=== PATIENT | male | born 1950 | race Caucasian/White ===

== ENCOUNTER 2016-03-02 02:57 | Emergency (ER) | payer MEDICARE, MEDICAID ==
[~2016-03-02] VITALS: Ht 177.8 cm; Wt 90.9 kg
[~2016-03-02 02:57] MED LIST: ALBU18HF INH; CARV25TA2 PO; CEPH500C PO; CLIN-78 PO; FERR325T20 PO; FINA5TAB9 PO; FLUT9.9S NS; NIFE60TA62 PO; OMEP20CA11 PO; TERA5CAP6 PO; nebulizer
[2016-03-02 03:01] VITALS: BP 130/84; PULSE 82; RESP 18; O2SAT 96
--- NOTE | 2016-03-02 03:12 | ED.REPORT ---
HPI-Abd Pain M 40 and Over Date of Service Mar 02, 2016 ED Provider: Farhat Oconnor MD Patient is a 65 year old male with a history of bipolar disorder, hypertension, pancreatitis, hepatitis C, GERD, peptic ulcer disease, stage 4 chronic kidney disease and left renal cell carcinoma s/p nephrectomy who presents to the ED complaining of abdominal pain that began yesterday. The patient states that several weeks ago he first developed a pain in his back, which migrated to his abdomen and then down to his leg. However, his pain resolved until yesterday when he developed similar symptoms. Patient also reports hearing a "pop" sometimes when he sits up. He denies a history of diverticulitis or kidney stones. Patient denies a history of small bowel obstruction but admits to previous nephrectomy and hernia repair 2x. He denies nausea, vomiting, or fever. Nursing Notes Stated Complaint: ABDOMINAL PAIN Chief Complaint: Male Abdominal Pain Nursing Notes Reviewed: Yes Allergies: Coded Allergies: Penicillins (Verified Allergy, Severe, HIVES, 03/02/16) hydromorphone (Verified Allergy, Unknown, 03/02/16) acetaminophen (Verified Adverse Reaction, Severe, n/v, 03/02/16) amlodipine (Verified Adverse Reaction, Severe, swelling legs, 03/02/16) codeine (Verified Adverse Reaction, Severe, N&V, 03/02/16) hydrocodone (Verified Adverse Reaction, Severe, severe N/V, 05/31/15) oxycodone (Verified Adverse Reaction, Severe, severe N/V, 05/31/15) Uncoded Allergies: CAT HAIR (Allergy, Unknown, UNKNOWN, 07/07/12) OPIATES (Adverse Reaction, Severe, GI UPSET, 05/31/15) Scheduled ([nebulizer]) DAILY Carvedilol (Carvedilol) 25 Mg Tablet 25 MG PO BIDWM Cephalexin (Cephalexin) 500 Mg Capsule 500 MG PO TID Clindamycin (Clindamycin) 300 Mg Capsule 300 MG PO QID Ferrous Gluconate (Ferrous Gluconate) 324 Mg Tablet 324 MG PO DAILYWM Finasteride (Finasteride) 5 Mg Tablet 5 MG PO EVERY OTHER DAY Fluticasone Propionate (Flonase Allergy Relief) 50 Mcg/Actuation [place].susp 9.9 ML NS DAILY Nifedipine ER (Nifedipine ER) 60 Mg Tab.er.24 60 MG PO DAILY Omeprazole (Omeprazole) 20 Mg Capsule. 20 MG PO DAILY Terazosin (Terazosin) 5 Mg Capsule 5 MG PO HS Scheduled PRN Albuterol Sulfate (Ventolin HFA Inhaler) 200 Puff/18 Gm Inhaler 2 PUFF INH Q4 PRN PRN For Shortness of Breath General Time Seen by MD: 03:11 Chief Complaint Abdominal pain Hx Obtained From: Patient Arrived By: Walk-in Sudden in Onset?: No Onset Occurred: Yesterday Symptom Duration: Since onset Progression since Onset: Gradually worsening Location: : Abdomen lower Quality: Painful Severity: Current: Moderate Severity: Maximum: Moderate Recent Healthcare: No recent doctor visit, No recent hospitalization Similar Sx Previous: No Past Medical History Past Medical History Notes: PCP: Dr. Glover Past Medical History 1. Esophageal stricture dilated in the past. 2. Uncontrolled hypertension. 3. History of acute pancreatitis in April 2012, thought due to thiazides and ARIELLE inhibitor. 4. Chronic active hepatitis C. 5. Recovering alcoholic x23 years. 6. Bipolar disorder. 7. History of suicide ideation back in 2010, for which he was hospitalized. 8. ADHD. 9. PTSD. 10. Asthma. 11. GERD. 12. History of peptic ulcer disease. 13. BPH. 14. Obstructive sleep apnea, on CPAP every night. 15. Chronic back pain. 16. Left renal cell carcinoma, for which he underwent a left-handed assisted laparoscopic radical nephrectomy by Dr. Maryellen Jenkins on December 22, 2012. Pathology reveals renal oncocytoma, with the tumor confined to the kidney without extension into renal pelvis or adipose tissues. Surgical margins negative for neoplasm. 17. renal failure Reports: Asthma, COPD, Cancer, Coronary artery disease, Hypertension Past Surgical History Nephrectomy - 2012 Tonsillectomy R Hydrocelectomy Right total knee arthroplasty Left total hip arthroplasty Hernia repair x2 Esophageal stricture dilatation Reports: Tonsillectomy Smoking History Former Smoker Social History Patient denies using drugs Alcohol Use: Denies alcohol use Other Social History: Poor social support, Local resident Occupation works around the farm Ambulatory Status Independent Review of Systems Constitutional: Denies: Chills, Fever GI: Reports: Abdominal pain, Denies: Nausea, Vomiting Musculoskeletal: Reports: Back pain Complete sys rev & neg: except as marked. Physical Exam Initial Vital Signs Vital Signs (First) Date Time Temp Pulse Resp B/P Pulse Ox O2 Delivery O2 Flow Rate FiO2 03/02/16 03:01 36.4 82 18 130/84 96 Room Air Initial VS: Reviewed, Vital signs normal Head / Eyes: Atraumatic, Normocephalic, PERRL ENT: Mucous membranes moist, Conjunctiva normal, No scleral icterus Neck: Supple, Full range of motion Extremities: Vascular intact, Neuro intact Skin: Warm, Dry, No cyanosis Neurologic: Alert, Oriented, Nonfocal Psychiatric: Mood/affect normal, Behavior normal, Normal thought content General/Constitutional: Awake, Alert, No acute distress, Well hydrated Respiratory / Chest: Breath sounds NL, Breath sounds = bilat, No respiratory distress, No rales, No rhonchi, No wheezing Cardiovascular: Heart rate NL, Regular rhythm, No murmurs Abdomen: Soft Tenderness/Guarding/Rebound: Positive: Tender diffuse (worse on the right mid abdomen) Bowel Sounds / Distention: Positive: Bowel sounds tympanitic, Distention moderate Back: No CVA tenderness Interpretation & Diagnostics Interpretation & Diagnostics: Urine Dip: pH of 5, trace leukocytes, positive nitries, +++ protein, +small ketones, ++ Bilirubin. All else normal. Lab Results Interpretation Result Diagram: 03/02/16 0330 03/02/16 0330 Test 03/02/16 03:30 03/02/16 04:00 White Blood Count 7.1th/mm3 (3.8-10.1) Red Blood Count 4.52mil/mm3 (4.40-5.80) Hemoglobin 12.7g/dL (13.8-17.2) Hematocrit 37.8% (41.0-50.0) Mean Corpuscular Volume 83.6fL (81-100) Mean Corpuscular Hemoglobin 28.1pg (27.0-35.0) Mean Corpuscular Hemoglobin Concent 33.6% (32.0-37.0) Red Cell Distribution Width 13.9% (12.3-15.4) Platelet Count 121bil/L (150-400) Neutrophils (%) (Auto) 55.8% (40-74) Lymphocytes (%) (Auto) 29.1% (14-46) Monocytes (%) (Auto) 12.5% (4-12) Eosinophils (%) (Auto) 2.2% (0-5) Basophils (%) (Auto) 0.4% (0-3) Sodium Level 141mEq/L (134-144) Potassium Level 4.4mEq/L (3.5-5.2) Chloride Level 103mEq/L (97-108) Carbon Dioxide Level 24mmol/L (18-29) Blood Urea Nitrogen 27mg/dL (8-27) Creatinine 2.34mg/dL (0.76-1.27) Estimat Glomerular Filtration Rate 30mL/min (>59) Glucose Level 98mg/dL (60-99) Calcium Level 9.0mg/dL (8.5-10.1) Magnesium Level 2.0mg/dL (1.6-2.6) Total Bilirubin 0.3mg/dL (0.0-1.2) Aspartate Amino Transf (AST/SGOT) 29U/L (0-50) Alanine Aminotransferase (ALT/SGPT) 33U/L (0-44) Alkaline Phosphatase 80U/L (25-160) Total Protein 7.6g/dL (6.4-8.4) Albumin 3.9g/dL (3.4-5.0) Lipase 68U/L (13-60) Hold Bhatia Top Tube Received (Received) Urine Color Yellow (YELLOW) Urine Appearance Hazy (CLEAR,HAZY) Urine pH 6.0 (5.0-8.0) Urine Specific [place] 1.023 (1.003-1.035) Urine Protein 100mg/dL (NEG,TRACE) Urine Glucose (UA) Negativemg/dL (NEGATIVE) Urine Ketones Negativemg/dL (NEGATIVE) Urine Occult Blood Negative (NEGATIVE) Urine Nitrite Negative (NEGATIVE) Urine Bilirubin Negative (NEGATIVE) Urine Urobilinogen Normalmg/dL (NORMAL) Urine Leukocyte Esterase Large (NEGATIVE) Urine RBC 0-2/hpf (0-2) Urine WBC >50/hpf (0-5) Urine Epithelial Cells Moderate/hpf (NONE-MOD) Urine Crystals None seen (NONE SEEN) Urine Bacteria Few/hpf (NONE-FEW) Urine Hyaline Casts None/lpf (NONE) Urine Granular Casts None seen (NONE SEEN) Urine Waxy Casts None seen (NONE SEEN) Urine Red Blood Cell Casts None seen (NONE SEEN) Urine White Blood Cell Casts None seen (NONE SEEN) Urine Mucus None seen (None Seen) Urine Trichomonas None seen (NONE SEEN) Urine Yeast None (NONE SEEN) Urinalysis Comment None Urine Culture Reflexed Indicated Hold Urine Received (Received) Lab values outside NL range: no clinical significance. ECG Interpretation ECG Interpretation: Sinus Rhythm, Rate 74 Abnormal T, consider ischemia lateral leads Time: 03:41 Interpreted by: ED physician Normal ECG Interpretation: No change from prior ECGs (Unchanged from 2014) CT Abd / Pelvis Interpretation CONCLUSION: No acute findings. Normal appendix. Other findings as noted above. Radiologist: Mitch Plascencia MD 03/02/2016 - 5:03:10 AM [facility] Study type: Abdominal CT no contrast Interpretation / Wet Read by: Interpret - Radiologist Re-Eval/Medical Decision Med Decision/Clinical Course Diffuse abdominal pain with no obvious source found on initial emergency room evaluation and CT scan. His initial dip urinalysis was trace leukocytes, culture pending. He will be discharged home to follow up with his primary doctor. Source of Hx: Old records Time of Eval: 06:05 )( Re-Eval Abdomen: Non-tender Patient Status: Condition improved Re-Evaluation/Progress Note: Rechecked the patient. Abdominal pain is improved. CT scan was negative. Awaiting UA results, but other labs do not show any acute process. Patient understands and agrees with the plan to be discharged home. Discharge instructions and follow-up discussed. All questions were addressed. Return to the ED warnings given. Counseled Regarding: Diagnosis, Lab results, Need for follow-up, When/why to return to ED Discharge & Departure Primary Impression: Abdominal pain Abdominal location: generalized Qualified Code: R10.84 - Generalized abdominal pain Disposition: Home Vital Signs - All Vital Signs Date Time Temp Pulse Resp B/P Pulse Ox O2 Delivery O2 Flow Rate FiO2 03/02/16 06:22 36.1 67 20 135/80 95 Room Air 03/02/16 03:01 36.4 82 18 130/84 96 Room Air )( All Prior VS Reviewed: Yes Condition: Stable Patient Instructions: Acute Abdominal Pain (ED) Additional Instructions: No evidence of serious illnesses found on laboratory testing. Your pain is likely due to viral infection. Follow-up in the emergency room over the weekend if you worsen or follow up with your primary doctor on Thursday routinely. Call me at [phone] between the hours of 9 PM and 6 AM for the next couple of nights if you have any questions or concerns. Referrals: Lucrecia Glover PA-C (PCP) Scribe Attestation Portions of this note were transcribed by Kelsey Hodges. I, Dr. Oconnor, personally performed the history, physical exam and medical decision-making; I reviewed and confirmed the accuracy of the information in the transcribed note. Signed by: Nancy Boateng, 03/02/2016 0607 copies to: Lucrecia Glover PA-C, Howard L MD Mar 02, 2016 03:12 Kelsey Hodges Mar 02, 2016 03:21
[2016-03-02] MEDS ORDERED: 0.9% Sodium Chloride 1,000 ML IV ONE (03:18)
[2016-03-02] MEDS ORDERED: Pantoprazole 4 mg/mL 10 mL Inj IVPUSH ONE (03:20)
[2016-03-02] MEDS ORDERED: fentaNYL-PF 50 mCg/mL 2 mL Inj IVPUSH ONE (03:35)
[2016-03-02] MEDS ORDERED: Ondansetron 2 mg/mL 2 mL Inj IVPUSH PRN (03:35)
[2016-03-02 03:42] LABS: BASOPHILS % (AUTO) 0.4 % (0-3); EOSINOPHILS % (AUTO) 2.2 % (0-5); MONOCYTES % (AUTO) 12.5 % (4-12); Mean Corpuscular Hemoglobin 28.1 pg (27.0-35.0); Mean Corpuscular Volume 83.6 fL (81-100); NEUTROPHILS % (AUTO) 55.8 % (40-74); Platelet Count 121 bil/L (150-400)
[2016-03-02 06:22] VITALS: BP 135/80; PULSE 67; RESP 20; O2SAT 95
[2016-03-02 06:39] LABS: APPEARANCE,URINE HAZY (CLEAR,HAZY); COLOR,URINE YELLOW (YELLOW); OCCULT BLOOD,URINE NEGATIVE (NEGATIVE); UROBILINOGEN,URINE NORMAL (NORMAL)
--- NOTE | 2016-03-02 07:40 | DRSVH ---
PROCEDURE: CT KUB (PNL-7475) INDICATIONS: abdominal pain TECHNIQUE: Noncontrast 5 mm thick sections acquired from the diaphragms to the symphysis. 5 mm thick coronal an d sagittal reformats were then performed. For radiation dose reduction, the following was used: aut omated exposure control, adjustment of mA and/or kV according to patient size. COMPARISON: None. FINDINGS: Image quality: Excellent. Lung bases: Lung bases are clear. Heart size is normal. There is a small hiatal hernia. Urinary system: Selective and non-visualized and is presumably surgically absent. The right kidney is normal size. No hydronephrosis or nephrolithiasis. No hydroureter or ureterolithiasis. The bladder i s partially fluid-filled. No bladder calculi. Small calcifications are present within the prostate gl and which is normal size. Other solid organs: Liver and spleen are normal in size. Gallbladder is unremarkable. Pancreas is normal in contours. No adrenal nodules. Peritoneum and bowel: Unenhanced bowel loops demonstrate normal wall thickness and caliber. The appe ndix is thin walled and gas filled. No free fluid or air. Nodes and vessels: No retroperitoneal or mesenteric adenopathy by size criteria. Aorta and inferior vena cava are normal in caliber. There are scattered atheromatous calcifications throughout the aor ta and iliac arteries bilaterally. Abdominal wall: There is diastasis of the rectus musculature. Pelvis: No free pelvic fluid. No inguinal hernias or adenopathy. Bones: No suspicious bony lesions. No vertebral body compression fractures. Left hip arthroplasty is intact. IMPRESSION: 1. No hydronephrosis, nephrolithiasis, hydroureter, or ureterolithiasis. 2. No acute intra-abdominal findings. Normal appendix. These findings are concordant with the overnight interpretation. Dictated by: Tara Aceves M.D. on 03/02/2016 at 7:36 Approved by: Tara Aceves M.D. on 03/02/2016 at 7:39
== END 2016-03-02 06:25 | disposition home or self-care (01) ==
LOC: SED 03:24
DX: R10.84 Generalized abdominal pain (principal); I12.9 Hypertensive chronic kidney disease with stage 1 through stage 4 chronic kidney disease, or unspecified chronic kidney disease; K21.9 Gastro-esophageal reflux disease without esophagitis; N18.4 Chronic kidney disease, stage 4 (severe); J45.909 Unspecified asthma, uncomplicated; J44.9 Chronic obstructive pulmonary disease, unspecified; I25.10 Atherosclerotic heart disease of native coronary artery without angina pectoris; Z85.9 Personal history of malignant neoplasm, unspecified; Z87.891 Personal history of nicotine dependence; Z88.0 Allergy status to penicillin; Z88.5 Allergy status to narcotic agent; Z88.6 Allergy status to analgesic agent; Z88.8 Allergy status to other drugs, medicaments and biological substances; Z91.048 Other nonmedicinal substance allergy status
CPT/HCPCS: 36415; 74176; 80053; 81000; 83690; 83735; 85025; 87077; 87086; 87088; 87186; 93005; 96361; 96374; 96375; 99285; J2405; J7030

== ENCOUNTER 2016-09-30 17:24 | Emergency (ER) | payer MEDICARE, MEDICAID ==
[~2016-09-30] VITALS: Ht 177.8 cm; Wt 95.5 kg
[2016-09-30 17:30] VITALS: BP 161/90; PULSE 74; RESP 15; O2SAT 99
[2016-09-30 19:00] LABS: BASOPHILS % (AUTO) 0.3 % (0-3); EOSINOPHILS % (AUTO) 2.1 % (0-5); MONOCYTES % (AUTO) 14.8 % (4-12); Mean Corpuscular Hemoglobin 27.9 pg (27.0-35.0); Mean Corpuscular Volume 85.8 fL (81-100); NEUTROPHILS % (AUTO) 52.9 % (40-74); Platelet Count 121 bil/L (150-400)
[2016-09-30 19:17] LABS: Magnesium 2.6 mg/dL (1.6-2.6)
[2016-10-01] MEDS ORDERED: ONDA4TAB9 PO (14:44)
[2016-10-05] MEDS ORDERED: LOSA25TA21 PO (07:36)
[2016-10-05] MEDS ORDERED: RANI-426 PO (07:36)
[2016-10-06] MEDS ORDERED: NIFE30TA92 PO (09:54)
[2016-10-06] MEDS ORDERED: METR500T PO (09:54)
== END 2016-09-30 21:17 | disposition left against medical advice (07) ==
LOC: SED 17:24
DX: Z53.21 Procedure and treatment not carried out due to patient leaving prior to being seen by health care provider (principal)

== ENCOUNTER 2016-10-01 13:11 | Emergency (ER) | payer MEDICARE, MEDICAID ==
[~2016-10-01] VITALS: Ht 175.3 cm; Wt 90.9 kg
[2016-10-01 13:22] VITALS: BP 137/86; PULSE 63; RESP 18; O2SAT 100
[2016-10-01] MEDS ORDERED: 0.9% Sodium Chloride 1,000 ML IV ONE ×2 (13:35→14:45)
[2016-10-01] MEDS ORDERED: Ondansetron 2 mg/mL 2 mL Inj IVPUSH PRN (13:35)
[2016-10-01 13:49] LABS: BASOPHILS % (AUTO) 0.3 % (0-3); EOSINOPHILS % (AUTO) 2.3 % (0-5); MONOCYTES % (AUTO) 11.8 % (4-12); Mean Corpuscular Hemoglobin 28.5 pg (27.0-35.0); Mean Corpuscular Volume 84.3 fL (81-100); NEUTROPHILS % (AUTO) 60.7 % (40-74); Platelet Count 123 bil/L (150-400)
--- NOTE | 2016-10-01 14:01 | ED.REPORT ---
HPI-NVD Date of Service Oct 01, 2016 ED Provider: Juno Le MD Pt is a 66 y/o male w/ a hx of prior alcohol abuse, pancreatitis, chronic Hep C , CKD, left renal carcinoma s/p left nephrectomy in 2012, presenting to the ED c /o diarrhea and occasional vomiting onset 5 days ago. He did eat at a picnic 1 week ago. He has not had any diarrhea today and feels like he is improving. The patient checked into the ED yesterday for N/V/D and had labs drawn. He left without being seen by a provider and labs were remarkable for creatinine which was found to be significantly elevated at 3.31 with a BUN of 37. He was called and told to come back to the ED for further evaluation. He c/o associated anorexia, mild aching abdominal pain. Pt denies bloody stools, hematemesis, fever. Nursing Notes Stated Complaint: INTESTINAL ISSUE Chief Complaint: Male Abdominal Pain Nursing Notes Reviewed: Yes Allergies: Coded Allergies: Penicillins (Verified Allergy, Severe, HIVES, 10/01/16) hydromorphone (Verified Allergy, Unknown, 10/01/16) acetaminophen (Verified Adverse Reaction, Severe, n/v, 10/01/16) amlodipine (Verified Adverse Reaction, Severe, swelling legs, 10/01/16) codeine (Verified Adverse Reaction, Severe, N&V, 10/01/16) hydrocodone (Verified Adverse Reaction, Severe, severe N/V, 10/01/16) oxycodone (Verified Adverse Reaction, Severe, severe N/V, 10/01/16) Uncoded Allergies: CAT HAIR (Allergy, Unknown, UNKNOWN, 07/07/12) OPIATES (Adverse Reaction, Severe, GI UPSET, 05/31/15) Scheduled ([nebulizer]) DAILY Carvedilol (Carvedilol) 25 Mg Tablet 25 MG PO BIDWM Cephalexin (Cephalexin) 500 Mg Capsule 500 MG PO TID Clindamycin (Clindamycin) 300 Mg Capsule 300 MG PO QID Ferrous Gluconate (Ferrous Gluconate) 324 Mg Tablet 324 MG PO DAILYWM Finasteride (Finasteride) 5 Mg Tablet 5 MG PO EVERY OTHER DAY Fluticasone Propionate (Flonase Allergy Relief) 50 Mcg/Actuation [place].susp 9.9 ML NS DAILY Nifedipine ER (Nifedipine ER) 60 Mg Tab.er.24 60 MG PO DAILY Omeprazole (Omeprazole) 20 Mg Capsule.dr 20 MG PO DAILY Terazosin (Terazosin) 5 Mg Capsule 5 MG PO HS Scheduled PRN Albuterol Sulfate (Ventolin HFA Inhaler) 200 Puff/18 Gm Inhaler 2 PUFF INH Q4 PRN PRN For Shortness of Breath Ondansetron ODT (Zofran ODT) 4 Mg Tablet 4 MG PO Q4H PRN PRN For Nausea General Time Seen by MD: 13:33 Chief Complaint Nausea, Vomiting, Diarrhea Hx Obtained From: Patient Arrived By: Walk-in Onset Occurred: 5 days ago Symptom Duration: Since onset Location: : Diffuse Quality: Aching Severity: Current: Mild Severity: Maximum: Mild Past Medical History Past Medical History Notes: PCP: Lucrecia Glover Past Medical History 1. Esophageal stricture dilated in the past. 2. Hypertension. 3. History of acute pancreatitis in April 2012, thought due to thiazides and ARIELLE inhibitor. 4. Chronic active hepatitis C. 5. Recovering alcoholic x23 years. 6. Bipolar disorder. 7. History of suicidal ideation back in 2010, for which he was hospitalized. 8. ADHD. 9. PTSD. 10. Asthma. 11. GERD. 12. History of peptic ulcer disease. 13. BPH. 14. Obstructive sleep apnea, on CPAP every night. 15. Chronic back pain. 16. Left renal cell carcinoma, for which he underwent a left-handed assisted laparoscopic radical nephrectomy by Dr. Maryellen Jenkins on December 22, 2012. Pathology reveals renal oncocytoma, with the tumor confined to the kidney without extension into renal pelvis or adipose tissues. Surgical margins negative for neoplasm. 17. CKD 18. CAD 19. COPD 20. Hypothyroid Past Surgical History Left nephrectomy - 2012 Tonsillectomy R Hydrocelectomy Right total knee arthroplasty Left total hip arthroplasty Hernia repair x2 Esophageal stricture dilatation Smoking History Former Smoker Social History Alcohol Use: Denies alcohol use Drug Use: Denies drug use Other Social History: Poor social support, Local resident Occupation works around the farm Ambulatory Status Independent Review of Systems Constitutional: Denies: Chills, Fever GI: Reports: Abdominal pain, Anorexia, Diarrhea, Nausea, Vomiting, Denies: Bloody/tarry stool, Hematemesis Complete sys rev & neg: except as marked. Physical Exam Initial Vital Signs Vital Signs (First) Date Time Temp Pulse Resp B/P Pulse Ox O2 Delivery O2 Flow Rate FiO2 10/01/16 13:22 36.3 63 18 137/86 100 Room Air Initial VS: Reviewed, Vital signs normal Head / Eyes: Atraumatic, Normocephalic ENT: Mucous membranes moist, Conjunctiva normal Neck: Supple, Full range of motion Respiratory: Breath sounds normal, Clear to auscultation, No respiratory distress Cardiovascular: Regular rate & rhythm, Heart sounds normal, Intact distal pulses Extremities: Vascular intact, Neuro intact, No swelling Skin: Warm, Dry, No cyanosis Neurologic: Alert, Oriented, Nonfocal Psychiatric: Mood/affect normal, Behavior normal, Normal thought content General/Constitutional: Awake, Alert, No acute distress, Cooperative, Not toxic appearing Abdomen: Atraumatic, Soft, Non-tender, No guarding, No rebound, No distention, No palpable mass Old periumbilical scar Back: Full range of motion, Painless range of motion, No CVA tenderness Interpretation & Diagnostics Lab Results Interpretation Result Diagram: 10/01/16 1340 10/01/16 1340 Test 10/01/16 13:40 10/01/16 15:31 White Blood Count 7.0th/mm3 (3.8-10.1) Red Blood Count 4.60mil/mm3 (4.40-5.80) Hemoglobin 13.1g/dL (13.8-17.2) Hematocrit 38.8% (41.0-50.0) Mean Corpuscular Volume 84.3fL (81-100) Mean Corpuscular Hemoglobin 28.5pg (27.0-35.0) Mean Corpuscular Hemoglobin Concent 33.8% (32.0-37.0) Red Cell Distribution Width 13.4% (12.3-15.4) Platelet Count 123bil/L (150-400) Neutrophils (%) (Auto) 60.7% (40-74) Lymphocytes (%) (Auto) 24.8% (14-46) Monocytes (%) (Auto) 11.8% (4-12) Eosinophils (%) (Auto) 2.3% (0-5) Basophils (%) (Auto) 0.3% (0-3) Sodium Level 133mEq/L (134-144) Potassium Level 4.7mEq/L (3.5-5.2) Chloride Level 99mEq/L (97-108) Carbon Dioxide Level 20mmol/L (18-29) Blood Urea Nitrogen 32mg/dL (8-27) Creatinine 2.89mg/dL (0.76-1.27) Estimat Glomerular Filtration Rate 23mL/min (>59) Glucose Level 102mg/dL (60-99) Calcium Level 8.7mg/dL (8.5-10.1) Magnesium Level 2.5mg/dL (1.6-2.6) Total Bilirubin 0.5mg/dL (0.0-1.2) Aspartate Amino Transf (AST/SGOT) 30U/L (0-50) Alanine Aminotransferase (ALT/SGPT) 35U/L (0-44) Alkaline Phosphatase 105U/L (25-160) Total Protein 8.2g/dL (6.4-8.4) Albumin 4.3g/dL (3.4-5.0) Lipase 157U/L (13-60) Hold Bhatia Top Tube Received (Received) Hold Urine Received (Received) Re-Eval/Medical Decision Med Decision/Clinical Course 66-year-old male chronic kidney disease presenting with nausea vomiting diarrhea 5 days. He was seen last night and had labs drawn but left prior to being seen due to long wait times. He was called to come back in because of his elevated creatinine. It is improved today after oral hydration last night. His nausea vomiting diarrhea has resolved. Patient felt much better after 2 L normal saline. He requested to go home. His creatinine is elevated though not significantly beyond his baseline. He will be discharged home with plan for oral rehydration and Zofran as needed. Return precautions given. Source of Hx: Old records Re-Evaluation/Progress : Time of Eval: 14:44 Re-Evaluation/Progress Note: Pt rechecked. Informed pt of plan for discharge. Pt understands and agrees with plan for discharge. F/U instructions and RTER warnings given. All questions addressed. Counseled Regarding: Diagnosis, Lab results, Need for follow-up, When/why to return to ED Discharge & Departure Impression: Primary Impression: Viral gastroenteritis Additional Impression: DAI (acute kidney injury) Disposition: Home Discharge Condition All VS Reviewed: Yes Condition: Stable Patient Instructions: Gastroenteritis (ED) Additional Instructions: I suspect your symptoms are caused by a viral gastroenteritis. Labs were reassuring. Your kidney function has returned back to its baseline compared to yesterday. Take Zofran as needed for nausea. Follow a BRAT diet (bananas, rice, applesauce, toast) and stay well hydrated with Gatorade and water. Follow-up with your primary care doctor in 1-3 days for a recheck. Return to the emergency department if you experience fever, worsening abdominal pain, bloody diarrhea or vomit, uncontrolled vomiting or diarrhea, or for other concerning symptoms. Referrals: Lucrecia Glover PA-C (PCP) Scribe Attestation Portions of this note were transcribed by Shamir Florentino. I, Dr. Le personally performed the history, physical exam and medical decision-making; I reviewed and confirmed the accuracy of the information in the transcribed note. copies to: Lucrecia Glover PA-C, Ben M MD Oct 01, 2016 14:01 SHAMIR FLORENTINO Oct 01, 2016 14:08
[2016-10-01 14:10] LABS: Magnesium 2.5 mg/dL (1.6-2.6)
[2016-10-01] MEDS ORDERED: LidocaineVisc 2%:Antacid 1:1 10 mL Syringe PO ONE (14:25)
[2016-10-01] MEDS ORDERED: ONDA4TAB9 PO (14:44)
[2016-10-01 16:23] VITALS: BP 120/75; PULSE 66; O2SAT 99
[2016-10-05] MEDS ORDERED: LOSA25TA21 PO (07:36)
[2016-10-05] MEDS ORDERED: RANI-426 PO (07:36)
[2016-10-06] MEDS ORDERED: METR500T PO (09:54)
[2016-10-06] MEDS ORDERED: NIFE30TA92 PO (09:54)
== END 2016-10-01 16:23 | disposition home or self-care (01) ==
LOC: SED 13:11
DX: A08.4 Viral intestinal infection, unspecified (principal); N17.9 Acute kidney failure, unspecified; I13.10 Hypertensive heart and chronic kidney disease without heart failure, with stage 1 through stage 4 chronic kidney disease, or unspecified chronic kidney disease; I25.10 Atherosclerotic heart disease of native coronary artery without angina pectoris; N18.9 Chronic kidney disease, unspecified; J44.9 Chronic obstructive pulmonary disease, unspecified; K21.9 Gastro-esophageal reflux disease without esophagitis; F31.9 Bipolar disorder, unspecified; F90.9 Attention-deficit hyperactivity disorder, unspecified type; G47.33 Obstructive sleep apnea (adult) (pediatric); E03.9 Hypothyroidism, unspecified; Z98.890 Other specified postprocedural states; Z90.89 Acquired absence of other organs; Z87.891 Personal history of nicotine dependence; Z88.0 Allergy status to penicillin; Z88.5 Allergy status to narcotic agent; Z88.8 Allergy status to other drugs, medicaments and biological substances
CPT/HCPCS: 36415; 80053; 83690; 83735; 85025; 96361; 96374; 99284; J7030

== ENCOUNTER 2016-10-03 17:54 | Emergency (ER) | payer MEDICARE, MEDICAID ==
[~2016-10-03] VITALS: Ht 177.8 cm; Wt 90.9 kg
[~2016-10-03 17:54] MED LIST changes: +ONDA4TAB9 PO
[2016-10-03 18:01] VITALS: BP 154/82; PULSE 68; RESP 16; O2SAT 97
[2016-10-03 18:27] LABS: BASOPHILS % (AUTO) 0.4 % (0-3); EOSINOPHILS % (AUTO) 1.5 % (0-5); MONOCYTES % (AUTO) 10.9 % (4-12); Mean Corpuscular Hemoglobin 28.6 pg (27.0-35.0); Mean Corpuscular Volume 84.3 fL (81-100); NEUTROPHILS % (AUTO) 65.4 % (40-74); Platelet Count 122 bil/L (150-400)
[2016-10-03 18:45] LABS: Magnesium 2.4 mg/dL (1.6-2.6)
[2016-10-03 19:43] VITALS: BP 169/102; PULSE 68; RESP 14; O2SAT 99
[2016-10-03] MEDS ORDERED: 0.9% Sodium Chloride 1,000 ML IV ONE (20:00)
[2016-10-03] MEDS ORDERED: Ondansetron 2 mg/mL 2 mL Inj IVPUSH PRN (20:00)
--- NOTE | 2016-10-03 20:27 | DRSVH ---
PROCEDURE: CT ABDOMEN AND PELVIS WITHOUT CONTRAST (PNL-[id number]) INDICATIONS: abd pain TECHNIQUE: Noncontrast 5 mm thick sections acquired from the diaphragms to the symphysis. 5 mm coronal and sagi ttal reformats were then performed. For radiation dose reduction, the following was used: automated exposure control, adjustment of mA and/or kV according to patient size. COMPARISON: [facility], CT, ABD/PELVIS W/O CON (PNL), 08/08/2014, 13:38. FINDINGS: Image quality: Good ABDOMEN: Lung bases: Lung bases are clear. Heart size is normal. There is in the posterior low right chest deep to the latissimus dorsi muscle a lipoma that measures 8.4 x 3.4 cm in axial plane and is greater than the visualized portion of 6.3 cm in craniocaudal dimension. There is a small lipoma 2 cm x 1.3 cm over several centimeters in length in the posterior lateral right lower chest. Solid organs: Liver and spleen are normal in size. Gallbladder is within normal limits.. Pancreas is normal in contours. No adrenal nodules. The right kidney is considered normal. The left kidney jernigan s been removed. Peritoneum and bowel: Unenhanced bowel loops demonstrate normal wall thickness and caliber. No free fluid or air. There is a normal appendix. Nodes and vessels: No retroperitoneal or mesenteric adenopathy by size criteria. Aorta and inferior vena cava are normal in caliber. Miscellaneous: No ventral hernias. PELVIS: Genitourinary: Bladder wall thickness is thought to be diffusely increased secondary to moderately e nlarged prostate. Miscellaneous: No inguinal hernias or adenopathy. Bones: No suspicious bony lesions. There is a mild rotoscoliosis convex to the left in the lumbar sp ine. There is a total left hip arthroplasty. No vertebral body compression fractures. IMPRESSION: 1. Acute change is not seen in the CT of the abdomen and pelvis without contrast. Cause of pain is no t identified. 2. Previous removal of the left kidney. No evidence for malignancy is seen in the abdomen and pelvis. 3. Moderately enlarged prostate with diffusely thickened bladder wall. 4. Lipoma is in the lower thorax tissues bilaterally right greater than left Dictated by: Randy Werner M.D. on 10/03/2016 at 20:17 Approved by: Randy Werner M.D. on 10/03/2016 at 20:26
--- NOTE | 2016-10-03 20:30 | ED.REPORT ---
HPI-Abd Pain M 40 and Over Date of Service Oct 03, 2016 ED Provider: Juno Le MD Pt is a 66 year old male with a history of alcohol abuse, pancreatitis, chronic Hep C, CKD, and left renal carcinoma s/p left nephrectomy in 2012 who presents to the ED complaining of abdominal pain onset 6 days ago. He c/o associated fatigue, nausea, vomiting, and diarrhea. He denies hematemesis, SOB, cough, nasal congestion, hematochezia, fever, and any other symptoms. The pt last vomited prior to arrival, and he states that he hasn't been able to "keep anything down since 9 days ago." Denies recent antibiotics. Pt reports that he has not had any recent travel or camping trips. Per pt, his girlfriend is also sick, but he reports that she does not have similar symptoms. Pt presented to the ED on 10/01/16 with his symptoms and he was discharged with a diagnosis of viral gastroenteritis and DAI. Nursing Notes Stated Complaint: GASTROENTERITIS Chief Complaint: Male Abdominal Pain Nursing Notes Reviewed: Yes Allergies: Coded Allergies: Penicillins (Verified Allergy, Severe, HIVES, 10/01/16) hydromorphone (Verified Allergy, Unknown, 10/01/16) acetaminophen (Verified Adverse Reaction, Severe, n/v, 10/01/16) amlodipine (Verified Adverse Reaction, Severe, swelling legs, 10/01/16) codeine (Verified Adverse Reaction, Severe, N&V, 10/01/16) hydrocodone (Verified Adverse Reaction, Severe, severe N/V, 10/01/16) oxycodone (Verified Adverse Reaction, Severe, severe N/V, 10/01/16) Uncoded Allergies: CAT HAIR (Allergy, Unknown, UNKNOWN, 07/07/12) OPIATES (Adverse Reaction, Severe, GI UPSET, 05/31/15) Scheduled ([nebulizer]) DAILY Carvedilol (Carvedilol) 25 Mg Tablet 25 MG PO BIDWM Cephalexin (Cephalexin) 500 Mg Capsule 500 MG PO TID Clindamycin (Clindamycin) 300 Mg Capsule 300 MG PO QID Ferrous Gluconate (Ferrous Gluconate) 324 Mg Tablet 324 MG PO DAILYWM Finasteride (Finasteride) 5 Mg Tablet 5 MG PO EVERY OTHER DAY Fluticasone Propionate (Flonase Allergy Relief) 50 Mcg/Actuation [place].susp 9.9 ML NS DAILY Nifedipine ER (Nifedipine ER) 60 Mg Tab.er.24 60 MG PO DAILY Omeprazole (Omeprazole) 20 Mg Capsule.dr 20 MG PO DAILY Terazosin (Terazosin) 5 Mg Capsule 5 MG PO HS Scheduled PRN Albuterol Sulfate (Ventolin HFA Inhaler) 200 Puff/18 Gm Inhaler 2 PUFF INH Q4 PRN PRN For Shortness of Breath Ondansetron ODT (Zofran ODT) 4 Mg Tablet 4 MG PO Q4H PRN PRN For Nausea General Time Seen by MD: 19:55 Chief Complaint Abdominal pain Hx Obtained From: Patient Arrived By: Walk-in Sudden in Onset?: No Onset Occurred: 6 days ago Symptom Duration: Since onset Location: : Diffuse Quality: Painful Severity: Current: Moderate Severity: Maximum: Moderate Recent Healthcare: Recent doctor visit Similar Sx Previous: No Past Medical History Past Medical History Notes: PCP: Lucrecia Glover Past Medical History 1. Esophageal stricture dilated in the past. 2. Hypertension. 3. History of acute pancreatitis in April 2012, thought due to thiazides and ARIELLE inhibitor. 4. Chronic active hepatitis C. 5. Recovering alcoholic x23 years. 6. Bipolar disorder. 7. History of suicidal ideation back in 2010, for which he was hospitalized. 8. ADHD. 9. PTSD. 10. Asthma. 11. GERD. 12. History of peptic ulcer disease. 13. BPH. 14. Obstructive sleep apnea, on CPAP every night. 15. Chronic back pain. 16. Left renal cell carcinoma, for which he underwent a left-handed assisted laparoscopic radical nephrectomy by Dr. Maryellen Jenkins on December 22, 2012. Pathology reveals renal oncocytoma, with the tumor confined to the kidney without extension into renal pelvis or adipose tissues. Surgical margins negative for neoplasm. 17. CKD 18. CAD 19. COPD 20. Hypothyroid Past Surgical History Left nephrectomy - 2012 Tonsillectomy R Hydrocelectomy Right total knee arthroplasty Left total hip arthroplasty Hernia repair x2 Esophageal stricture dilatation Smoking History Former Smoker Social History Alcohol Use: Denies alcohol use Drug Use: Denies drug use Other Social History: Poor social support, Local resident Occupation works around the farm Ambulatory Status Independent Review of Systems Constitutional: Reports: Fatigue, Denies: Fever Respiratory: Denies: Non-productive cough, Shortness of breath GI: Reports: Abdominal pain, Diarrhea, Nausea, Vomiting, Denies: Hematemesis, Hematochezia Complete sys rev & neg: except as marked. Ears / Nose / Throat: Denies: Nasal congestion Physical Exam Initial Vital Signs Vital Signs (First) Date Time Temp Pulse Resp B/P Pulse Ox O2 Delivery O2 Flow Rate FiO2 10/03/16 18:01 37.5 68 16 154/82 97 10/03/16 19:43 Room Air Initial VS: Reviewed Head / Eyes: Atraumatic, Normocephalic Neck: Supple, Full range of motion Extremities: Vascular intact, Neuro intact Skin: Warm, Dry, No cyanosis Neurologic: Alert, Oriented Psychiatric: Mood/affect normal, Behavior normal General/Constitutional: Awake, Alert Respiratory / Chest: Atraumatic, Breath sounds NL, Breath sounds = bilat Cardiovascular: Heart rate NL, Regular rhythm, Heart sounds NL Abdomen: No guarding, No rebound Tenderness/Guarding/Rebound: Positive: Tender diffuse No ascites or fluid wave Back: Full range of motion CVAT Interpretation & Diagnostics Lab Results Interpretation Result Diagram: 10/03/16 1815 10/03/16 1815 Test 10/03/16 18:15 10/03/16 20:25 White Blood Count 8.2th/mm3 (3.8-10.1) Red Blood Count 4.58mil/mm3 (4.40-5.80) Hemoglobin 13.1g/dL (13.8-17.2) Hematocrit 38.6% (41.0-50.0) Mean Corpuscular Volume 84.3fL (81-100) Mean Corpuscular Hemoglobin 28.6pg (27.0-35.0) Mean Corpuscular Hemoglobin Concent 33.9% (32.0-37.0) Red Cell Distribution Width 13.4% (12.3-15.4) Platelet Count 122bil/L (150-400) Neutrophils (%) (Auto) 65.4% (40-74) Lymphocytes (%) (Auto) 21.7% (14-46) Monocytes (%) (Auto) 10.9% (4-12) Eosinophils (%) (Auto) 1.5% (0-5) Basophils (%) (Auto) 0.4% (0-3) Sodium Level 136mEq/L (134-144) Potassium Level 4.3mEq/L (3.5-5.2) Chloride Level 103mEq/L (97-108) Carbon Dioxide Level 20mmol/L (18-29) Blood Urea Nitrogen 24mg/dL (8-27) Creatinine 2.91mg/dL (0.76-1.27) Estimat Glomerular Filtration Rate 23mL/min (>59) Glucose Level 110mg/dL (60-99) Lactic Acid Level 0.7mmol/L (0.4-2.0) Calcium Level 9.1mg/dL (8.5-10.1) Magnesium Level 2.4mg/dL (1.6-2.6) Total Bilirubin 0.5mg/dL (0.0-1.2) Aspartate Amino Transf (AST/SGOT) 32U/L (0-50) Alanine Aminotransferase (ALT/SGPT) 31U/L (0-44) Alkaline Phosphatase 104U/L (25-160) Total Protein 8.0g/dL (6.4-8.4) Albumin 4.1g/dL (3.4-5.0) Lipase 210U/L (13-60) Hold Bhatia Top Tube Received (Received) Urine Color Yellow (YELLOW) Urine Appearance Clear (CLEAR,HAZY) Urine pH 7.0 (5.0-8.0) Urine Specific [place] 1.020 (1.003-1.035) Urine Protein 300mg/dL (NEG,TRACE) Urine Glucose (UA) Negativemg/dL (NEGATIVE) Urine Ketones Negativemg/dL (NEGATIVE) Urine Occult Blood Trace (NEGATIVE) Urine Nitrite Negative (NEGATIVE) Urine Bilirubin Negative (NEGATIVE) Urine Urobilinogen Normalmg/dL (NORMAL) Urine Leukocyte Esterase Negative (NEGATIVE) Urine RBC 0-2/hpf (0-2) Urine WBC 0-5/hpf (0-5) Urine Epithelial Cells Few/hpf (NONE-MOD) Urine Crystals None seen (NONE SEEN) Urine Bacteria Few/hpf (NONE-FEW) Urine Hyaline Casts None/lpf (NONE) Urine Granular Casts None seen (NONE SEEN) Urine Waxy Casts None seen (NONE SEEN) Urine Red Blood Cell Casts None seen (NONE SEEN) Urine White Blood Cell Casts None seen (NONE SEEN) Urine Mucus None seen (None Seen) Urine Trichomonas None seen (NONE SEEN) Urine Yeast None (NONE SEEN) Urinalysis Comment None Urine Culture Reflexed Not indicated CT Abd / Pelvis Interpretation IMPRESSION: 1. Acute change is not seen in the CT of the abdomen and pelvis without contrast. Cause of pain is not identified. 2. Previous removal of the left kidney. No evidence for malignancy is seen in the abdomen and pelvis. 3. Moderately enlarged prostate with diffusely thickened bladder wall. 4. Lipoma is in the lower thorax tissues bilaterally right greater than left Dictated by: Randy Werner M.D. on 10/03/2016 at 20:17 Study type: Abdominal CT no contrast Interpretation / Wet Read by: Interpret - Radiologist Re-Eval/Medical Decision Med Decision/Clinical Course 66-year-old male history of solitary kidney, chronic kidney disease, hepatitis C presenting with nausea vomiting for 9 days. He had none while he was here. Also with diarrhea. His labs are unremarkable other than elevated kidney function which is only slightly up from his baseline and is unchanged from [address] abdomen and pelvis no acute pathology. Stools cultures were sent. Given the duration of symptoms and concerned he may need antibiotics though he feels much better and will go home and we can call him in the morning with results should he need any antibiotics. He denies any recent antibiotics or risk factors for C. difficile. Patient felt much better and is discharged home with antiemetics and pain medications with plans to follow up on his stool studies in the morning. Return precautions given. Source of Hx: Old records Time of Eval: 21:14 Re-Evaluation/Progress Note: Pt rechecked. Informed pt of plan for discharge. Pt understands and agrees with plan for discharge. F/U instructions and RTER warnings given. All questions addressed. Counseled Regarding: Diagnosis, Lab results, Need for follow-up, When/why to return to ED Discharge & Departure Primary Impression: Gastroenteritis Additional Impression: Generalized abdominal pain Disposition: Home Vital Signs - All Vital Signs Date Time Temp Pulse Resp B/P Pulse Ox O2 Delivery O2 Flow Rate FiO2 10/03/16 19:43 37.1 68 14 169/102 99 Room Air 10/03/16 18:01 37.5 68 16 154/82 97 )( All Prior VS Reviewed: Yes Condition: Stable Patient Instructions: Gastroenteritis (ED) Additional Instructions: You appear to have gastroenteritis. Your CAT scan is reassuring. Your labs are reassuring. Your kidney function is the same as it was 2 days ago. We will call you tomorrow in the morning if your stools show signs of infection and require antibiotics. Return to the Emergency Department for any worsening abdominal pain, weakness, fever, nausea, vomiting, or concerning symptoms. Referrals: Lucrecia Glover PA-C (PCP) [place] Attestation Portions of this note were transcribed by Adrianna Mojica. I, Dr. Le personally performed the history, physical exam and medical decision-making; I reviewed and confirmed the accuracy of the information in the transcribed note. Signed by: Nancy Vazquez, 10/03/16. copies to: Lucrecia Glover PA-C, Ben M MD Oct 03, 2016 20:30 Adrianna [place] Oct 03, 2016 20:33
[2016-10-03 20:46] LABS: APPEARANCE,URINE CLEAR (CLEAR,HAZY); COLOR,URINE YELLOW (YELLOW); OCCULT BLOOD,URINE TRACE (NEGATIVE); UROBILINOGEN,URINE NORMAL (NORMAL)
[2016-10-03] MEDS ORDERED: _Ondansetron ODT 4 mg Tablet PO PRN (21:20)
[2016-10-03] MEDS ORDERED: _HYDROcodone/APAP 5-325 mg Tablet PO PRN (21:20)
[2016-10-05] MEDS ORDERED: LOSA25TA21 PO (07:36)
[2016-10-05] MEDS ORDERED: RANI-426 PO (07:36)
[2016-10-06] MEDS ORDERED: NIFE30TA92 PO (09:54)
[2016-10-06] MEDS ORDERED: METR500T PO (09:54)
== END 2016-10-03 22:17 | disposition home or self-care (01) ==
LOC: SED 17:54
DX: K52.9 Noninfective gastroenteritis and colitis, unspecified (principal); I13.10 Hypertensive heart and chronic kidney disease without heart failure, with stage 1 through stage 4 chronic kidney disease, or unspecified chronic kidney disease; N18.9 Chronic kidney disease, unspecified; K21.9 Gastro-esophageal reflux disease without esophagitis; I25.10 Atherosclerotic heart disease of native coronary artery without angina pectoris; F43.10 Post-traumatic stress disorder, unspecified; Z87.891 Personal history of nicotine dependence; Z88.0 Allergy status to penicillin; Z88.5 Allergy status to narcotic agent; Z88.8 Allergy status to other drugs, medicaments and biological substances
CPT/HCPCS: 36415; 74176; 80053; 81000; 83605; 83690; 83735; 85025; 87040; 87507; 96361; 96374; 96375; 99285; J2270; J2405; J7030

== ENCOUNTER 2016-10-09 04:54 | Inpatient (IN) | payer MEDICARE, MEDICAID ==
[~2016-10-09] VITALS: Ht 172.7 cm; Wt 97.4 kg
[2016-10-09] VITALS (8 sets, daily range): BP systolic 140–185; BP diastolic 91–112; PULSE 60–80; RESP 15–18; O2SAT 96–98
[~2016-10-09 04:54] MED LIST changes: -CEPH500C PO; -CLIN-78 PO; +METR500T PO; +NIFE30TA92 PO; -NIFE60TA62 PO; -OMEP20CA11 PO; +RANI-426 PO
[2016-10-09] MEDS ORDERED: 0.9% Sodium Chloride 1,000 ML IV ONE (05:02)
[2016-10-09] MEDS ORDERED: Ondansetron 2 mg/mL 2 mL Inj IVPUSH ONE ×2 (05:05→07:30)
[2016-10-09 05:28] LABS: BASOPHILS % (AUTO) 0.4 % (0-3); EOSINOPHILS % (AUTO) 2.5 % (0-5); MONOCYTES % (AUTO) 11.3 % (4-12); Mean Corpuscular Hemoglobin 28.7 pg (27.0-35.0); Mean Corpuscular Volume 82.8 fL (81-100); NEUTROPHILS % (AUTO) 58.4 % (40-74); Platelet Count 132 bil/L (150-400)
[2016-10-09 05:40] LABS: INR 1.04 ratio
[2016-10-09 05:48] LABS: Magnesium 2.1 mg/dL (1.6-2.6)
--- NOTE | 2016-10-09 06:40 | ED.REPORT ---
HPI-General Illness Date of Service Oct 09, 2016 ED Provider: Yenny Burns MD The pt is a 66 y/o male w/ a hx of hepatitis C, HTN, GERD, pancreatitis, and multiple other chronic conditions presenting to the ED complaining of diarrhea onset 13 days ago. He has had 10 bowel movements and vomited 6 times since last night and is experiencing abdominal pain. The pt reports feeling as bad as he did the day he was hospitalized. Denies fever, chills, generalized myalgia, or blood in his stool. The pt was just discharged from the hospital for C. Dificile Colitis 3 days ago. He reports feeling better the next day but then getting worse after that. He also reports being unable to eat other foods other than soft, simple foods due to nausea and being unable to keep it down. Nursing Notes Stated Complaint: DIARRHEA, VOMITING Chief Complaint: Diarrhea Nursing Notes Reviewed: Yes Allergies: Coded Allergies: Penicillins (Verified Allergy, Severe, HIVES, 10/09/16) hydromorphone (Verified Allergy, Unknown, 10/09/16) acetaminophen (Verified Adverse Reaction, Severe, n/v, 10/09/16) amlodipine (Verified Adverse Reaction, Severe, swelling legs, 10/09/16) codeine (Verified Adverse Reaction, Severe, N&V, 10/09/16) hydrocodone (Verified Adverse Reaction, Severe, severe N/V, 10/09/16) oxycodone (Verified Adverse Reaction, Severe, severe N/V, 10/09/16) Uncoded Allergies: CAT HAIR (Allergy, Unknown, UNKNOWN, 07/07/12) OPIATES (Adverse Reaction, Severe, GI UPSET, 05/31/15) Scheduled Carvedilol (Carvedilol) 25 Mg Tablet 25 MG PO BIDWM Finasteride (Finasteride) 5 Mg Tablet 5 MG PO DAILY Fluticasone Propionate (Flonase Allergy Relief) 50 Mcg/Actuation [place].susp 2 SPRAYS NS DAILY Levothyroxine (Levothyroxine) 50 Mcg Tablet 50 MCG PO DAILY Losartan Potassium (Losartan Potassium) 25 Mg Tablet 25 MG PO DAILY Metronidazole (Flagyl) 500 Mg Tablet 500 MG PO Q8 Nifedipine ER (Adalat CC) 60 Mg Tablet 60 MG PO DAILY Terazosin (Terazosin) 2 Mg Capsule 2 NG PO MORNING Terazosin (Terazosin) 2 Mg Capsule 4 MG PO HS Scheduled PRN Albuterol Sulfate (Ventolin HFA Inhaler) 200 Puff/18 Gm Inhaler 2 PUFF INH Q4 PRN PRN For Shortness of Breath Ondansetron ODT (Zofran ODT) 4 Mg Tablet 4 MG PO Q4H PRN PRN For Nausea General Time Seen by MD: 05:02 Chief Complaint Diarrhea Hx Obtained From: Patient Arrived By: Walk-in Sudden in Onset?: Yes Onset Occurred: More than a week ago... (2 weeks) Symptom Duration: Waxes and wanes Recent Healthcare: Recent doctor visit, Recent hospitalization Similar Sx Previous: Yes Past Medical History Past Medical History Notes: PCP: Lucrecia Glover Past Medical History 1. Esophageal stricture dilated in the past. 2. Hypertension. 3. History of acute pancreatitis in April 2012, thought due to thiazides and ARIELLE inhibitor. 4. Chronic active hepatitis C. 5. Recovering alcoholic x23 years. 6. Bipolar disorder. 7. History of suicidal ideation back in 2010, for which he was hospitalized. 8. ADHD. 9. PTSD. 10. Asthma. 11. GERD. 12. History of peptic ulcer disease. 13. BPH. 14. Obstructive sleep apnea, on CPAP every night. 15. Chronic back pain. 16. Left renal cell carcinoma, for which he underwent a left-handed assisted laparoscopic radical nephrectomy by Dr. Maryellen Jenkins on December 22, 2012. Pathology reveals renal oncocytoma, with the tumor confined to the kidney without extension into renal pelvis or adipose tissues. Surgical margins negative for neoplasm. 17. CKD 18. CAD 19. COPD 20. Hypothyroid Past Surgical History Left nephrectomy - 2013 Tonsillectomy R Hydrocelectomy Right total knee arthroplasty Left total hip arthroplasty Hernia repair x2 Esophageal stricture dilatation Smoking History Former Smoker Social History lives alone Alcohol Use: In recovery Drug Use: Denies drug use Other Social History: Poor social support, Local resident Occupation works around the farm Ambulatory Status Independent Review of Systems Decreased appetite; Denies generalized myalgia; Full Review of Systems Constitutional: Denies: Chills, Fever GI: Reports: Abdominal pain, Diarrhea, Nausea, Vomiting, Denies: Bloody/tarry stool Complete sys rev & neg: except as marked. Physical Exam Vital Signs Vital Signs Date Time Temp Pulse Resp B/P Pulse Ox O2 Delivery O2 Flow Rate FiO2 10/09/16 05:00 37.1 73 16 140/91 98 Room Air Initial VS: Reviewed General/Constitutional: Well-developed, Well-nourished Head / Eyes: Atraumatic, Normocephalic, PERRL ENT: Mucous membranes moist, Conjunctiva normal, No scleral icterus Neck: Supple, Non-tender, Full range of motion Cardiovascular: Regular rate & rhythm, Heart sounds normal, Intact distal pulses Skin: Warm, Dry, No cyanosis Neurologic: Alert, Oriented, Nonfocal Psychiatric: Mood/affect normal, Behavior normal, Normal thought content Respiratory / Chest: Atraumatic, Breath sounds = bilat Minimal diffuse wheezes Abdomen: Soft, BS normoactive Slight tenderness in RUQ Interpretation & Diagnostics Lab Results Interpretation Result Diagram: 10/09/16 0515 10/09/16 0515 Test 10/09/16 05:15 10/09/16 07:15 White Blood Count 7.2th/mm3 (3.8-10.1) Red Blood Count 4.36mil/mm3 (4.40-5.80) Hemoglobin 12.5g/dL (13.8-17.2) Hematocrit 36.1% (41.0-50.0) Mean Corpuscular Volume 82.8fL (81-100) Mean Corpuscular Hemoglobin 28.7pg (27.0-35.0) Mean Corpuscular Hemoglobin Concent 34.6% (32.0-37.0) Red Cell Distribution Width 13.3% (12.3-15.4) Platelet Count 132bil/L (150-400) Neutrophils (%) (Auto) 58.4% (40-74) Lymphocytes (%) (Auto) 27.3% (14-46) Monocytes (%) (Auto) 11.3% (4-12) Eosinophils (%) (Auto) 2.5% (0-5) Basophils (%) (Auto) 0.4% (0-3) Prothrombin Time 11.1sec (8.1-12.5) Prothromb Time International Ratio 1.04ratio Sodium Level 138mEq/L (134-144) Potassium Level 3.7mEq/L (3.5-5.2) Chloride Level 101mEq/L (97-108) Carbon Dioxide Level 22mmol/L (18-29) Blood Urea Nitrogen 21mg/dL (8-27) Creatinine 3.07mg/dL (0.76-1.27) Estimat Glomerular Filtration Rate 22mL/min (>59) Glucose Level 117mg/dL (60-99) Lactic Acid Level 0.8mmol/L (0.4-2.0) Calcium Level 9.1mg/dL (8.5-10.1) Magnesium Level 2.1mg/dL (1.6-2.6) Total Bilirubin 0.4mg/dL (0.0-1.2) Aspartate Amino Transf (AST/SGOT) 38U/L (0-50) Alanine Aminotransferase (ALT/SGPT) 32U/L (0-44) Alkaline Phosphatase 93U/L (25-160) Total Protein 7.4g/dL (6.4-8.4) Albumin 3.8g/dL (3.4-5.0) Lipase 204U/L (13-60) Urine Color Yellow (YELLOW) Urine Appearance Hazy (CLEAR,HAZY) Urine pH 7.0 (5.0-8.0) Urine Specific [place] 1.015 (1.003-1.035) Urine Protein 100mg/dL (NEG,TRACE) Urine Glucose (UA) Negativemg/dL (NEGATIVE) Urine Ketones Negativemg/dL (NEGATIVE) Urine Occult Blood Trace (NEGATIVE) Urine Nitrite Negative (NEGATIVE) Urine Bilirubin Negative (NEGATIVE) Urine Urobilinogen Normalmg/dL (NORMAL) Urine Leukocyte Esterase Trace (NEGATIVE) Urine RBC 0-2/hpf (0-2) Urine WBC 6-10/hpf (0-5) Urine Epithelial Cells Occasional/hpf (NONE-MOD) Urine Crystals None seen (NONE SEEN) Urine Bacteria None/hpf (NONE-FEW) Urine Hyaline Casts None/lpf (NONE) Urine Granular Casts None seen (NONE SEEN) Urine Waxy Casts None seen (NONE SEEN) Urine Red Blood Cell Casts None seen (NONE SEEN) Urine White Blood Cell Casts None seen (NONE SEEN) Urine Mucus None seen (None Seen) Urine Trichomonas None seen (NONE SEEN) Urine Yeast None (NONE SEEN) Urinalysis Comment None Urine Culture Reflexed Indicated Re-Eval/Medical Decision Med Decision/Clinical Course 66-year-old gentleman presents with worsening diarrhea 3 days after discharge. Diagnosed with C. difficile currently on by mouth metronidazole and is taking it as prescribed. Symptoms are worse than they were with his previous admission with more frequent diarrhea, renal function is again worse and his lipase is again elevated. We will readmit. IV fluids switched to oral vancomycin for the C. difficile and follow lipase as well as renal function with IV hydration and clear liquids only for diet. Time of Eval: 08:14 Re-Evaluation/Progress Note: Pt rechecked. Informed pt of need for admission. Pt understands and agrees with plan for admission. All questions addressed. Consultation #1: Call Returned at: 08:14 Note: Called pharmacy to confirm that oral vancomycin is not absorbed and no renal dosing changes are needed Consultation #2: Referral / Consult Name: Praveen Pitts MD Consulted With: Hospitalist Call Returned at: 08:49 Rac Specialist: Will see patient, Agrees with eval, Agrees with plan, Accepts admit Counseled Regarding: Diagnosis, Lab results, Need for admission Discharge & Departure Primary Impression: Recurrent Clostridium difficile diarrhea Additional Impressions: Pancreatitis Chronicity: chronic Pancreatitis type: unspecified pancreatitis type Qualified Code: K86.1 - Other chronic pancreatitis Acute renal disease Disposition: ADMITTED TO HOSPITAL Discharge Condition All VS Reviewed: Yes Condition: Stable Referrals: Lucrecia Glover PA-C (PCP) Scribe Attestation Portions of this note were transcribed by Tahir Marrufo. I, Dr. Burns personally performed the history, physical exam and medical decision-making; I reviewed and confirmed the accuracy of the information in the transcribed note. copies to: Lucrecia Glover PA-C, Shawna L MD Oct 09, 2016 06:40 Tahir Marrufo Oct 09, 2016 08:17
[2016-10-09] MEDS ORDERED: Vancomycin 250 mg Oral Capsule PO ONE (08:05)
[2016-10-09] MEDS: 0.9% Sodium Chloride 1,000 ML IV SCH ×4 (08:20→22:55)
[2016-10-09 08:31] LABS: APPEARANCE,URINE HAZY (CLEAR,HAZY); COLOR,URINE YELLOW (YELLOW)
[2016-10-09 08:32] LABS: OCCULT BLOOD,URINE TRACE (NEGATIVE); UROBILINOGEN,URINE NORMAL (NORMAL)
[2016-10-09] MEDS ORDERED: NIFE60TA77 PO (08:53)
[2016-10-09] MEDS ORDERED: TERA2CAP4 PO ×2 (08:53)
[2016-10-09] MEDS ORDERED: LEVO50TA6 PO (08:53)
[2016-10-09] MEDS ORDERED: LOSA25TA21 PO (08:56)
[2016-10-09] MEDS: Heparin 5,000 Unit/mL Inj SUBQ SCH ×2 (11:25→19:25)
--- NOTE | 2016-10-09 11:32 | PCM.HPMED ---
Subjective Date of Service Oct 09, 2016 Primary Provider: Admitting Physician: Praveen Pitts MD Primary Care Physician: Lucrecia Glover PA-C Attending Physician: Praveen Pitts MD Chief Complaint: Loose stool, abdominal pain , weakness History of Present Illness: History of present illness and past histories obtained from old charts, ED physician, and the patient (patient does not remember all details of current illness, PMH history, admissions, medications, procedures or test patient underwent in the past that might be relevant to current case). This is a 59 yo male with past medical history of Hepatitis C , pancreatitis, probably alcohol abuse, C-dif infection, recent admission to the hospital for C. difficile colitis, discharged on October 06 in good condition on Flagyl PO. Patient presented today with worsening diarrhea, fatigue, abdominal pain, worsened renal function, elevated lipase. Review of Systems: REVIEW OF SYSTEMS: GENERAL: + malaise, no fevers., SEE HPI HEENT: Negative for frequent or significant headaches All other reviewed and negative other than HPI. Allergies Coded Allergies: Penicillins (Verified Allergy, Severe, HIVES, 10/09/16) hydromorphone (Verified Allergy, Unknown, 10/09/16) acetaminophen (Verified Adverse Reaction, Severe, n/v, 10/09/16) amlodipine (Verified Adverse Reaction, Severe, swelling legs, 10/09/16) codeine (Verified Adverse Reaction, Severe, N&V, 10/09/16) hydrocodone (Verified Adverse Reaction, Severe, severe N/V, 10/09/16) oxycodone (Verified Adverse Reaction, Severe, severe N/V, 10/09/16) Uncoded Allergies: CAT HAIR (Allergy, Unknown, UNKNOWN, 07/07/12) OPIATES (Adverse Reaction, Severe, GI UPSET, 05/31/15) Home Medications Home medications reviewed PMH Social History Hx Alcohol Use: Yes (-SOBER 27 YRS) Hx Substance Use: No Hx Tobacco Use: No Smoking Status: Former Smoker Exam Vital Signs Vital Sign - Last Date Time Temp Pulse Resp B/P Pulse Ox O2 Delivery O2 Flow Rate FiO2 10/09/16 08:26 36.4 79 15 146/93 98 Room Air Intake and Output 10/08/16 10/08/16 10/09/16 Cumulative From/Thru 15:00 23:00 07:00 10/09/16 05:00 - 10/09/16 05:28 Intake Total 1000 ml 1000 ml Balance 1000 ml 1000 ml Intake IV Total 1000 ml 1000 ml Exam PHYSICAL EXAM: GENERAL: Alert, not in distress, cooperative HEAD: atraumatic, normocephalic, no bruises. EYES: GERRY, EOMI, anicteric, able to fully open and close eyelids SKIN: Skin color normal, turgor normal. No visible rashes or lesions. EAR, NOSE, MOUTH, THROAT: Lips, oral mucosa, tongue gums, oropharynx are moist , pink, no lesions. Ears normal appearance, no lesions. NECK: no jugulovenous distention, no carotid bruits, carotid pulse normal contour, No carotid bruit, no enlarged lymph nodes appreciated; supple ROM normal. RESPIRATORY: Lungs clear to auscultation. Good diaphragmatic excursion. Normal percussion sound. CARDIAC: normal S1 and S2; no rubs, murmurs, or gallops; regular rate and rhythm ABDOMEN: Abdomen soft, tender. BS normal. No masses or organomegaly. MUSCULOSKELETAL: ROM full, muscles are not tender EXTREMITIES: no pitting edema in LE, no new deformities or skin discoloration. NEURO: Alert, oriented X 3, Sensation grossly intact., Cranial nerves II-XII intact, Grossly normal motor function. PULSES: 2+ radial, 2+ carotid Lab and Diagnostics Result Diagram: 10/09/1651410/09/16514 X-Rays, CTs and MRIs RecentMRCP IMPRESSION: Overall, unremarkable MRI appearance of the pancreas. Nonetheless recommend correlation with clinical findings and pancreatic enzymes. Recent CT abdomen IMPRESSION: 1. Acute change is not seen in the CT of the abdomen and pelvis without contrast. Cause of pain is not identified. 2. Previous removal of the left kidney. No evidence for malignancy is seen in the abdomen and pelvis. 3. Moderately enlarged prostate with diffusely thickened bladder wall. 4. Lipoma is in the lower thorax tissues bilaterally right greater than left ecent US IMPRESSION: 1. Diffusely increased hepatic echotexture. This finding is most likely secondary to hepatic fatty infiltration although other hepatocellular disease may have a similar appearance. Recommend clinical correlation. 2. Right kidney is normal in size but demonstrates echogenic cortex suggesting medical renal disease. Recommend clinical correlation. No hydronephrosis. 3. Left nephrectomy. 4. Pancreas not well-seen. Assessment & Plan This is a 59 yo male with past medical history of Hepatitis C , pancreatitis, probably alcohol abuse, C-dif infection, recent admission to the hospital for C. difficile colitis, discharged on October 06 in good condition on Flagyl by mouth. Patient presented today with worsening diarrhea, fatigue, worsened renal function, elevated lipase. C. 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 Hepatitis C. - He has elevated lipase at baseline, unclear etiology - Patient does have a gallbladder, no other elevation in LFTs noted that he does have right upper quadrant/epigastric tenderness. - CT abdominopelvic had had showed no signs of cholelithiasis or choledocholithiasis in the past - Recent MRCP no concern for cholelithiasis and choledocholithiasis Plan - Continue with careful hydration, monitor Hyperparathyroidemia, -- Likely due to renal disease -- Vit D 25 OH levels are ordered Hypertension - Elevated -c/w home meds BPH - stable - Continue home medications GERD, chronic stable --Continue home medications DVT PROPHYLAXIS: heparin Code status: patient would like to be full code Disposition: discharge in 2-3 days after patient improves. Plan of care discussed with ED physician; Labs, radiology tests, recent ECG reviewed. Plan of care, medication side effects, home medication, diagnostic procedures and available alternatives were discussed and reviewed with patient. All questions answered. Patient verbalized understanding, approved and agreed to plan of care. Praveen Pitts MD Oct 09, 2016 09:35
[2016-10-09] MEDS: NIFEdipine 30 mg ER24 Tablet PO SCH (12:22)
[2016-10-09] MEDS: Vancomycin 250 mg Oral Capsule PO SCH ×2 (12:22→20:54)
--- NOTE | 2016-10-09 13:44 | NUR ---
ADMISSION Pt arrived to [facility] unit, 1015, from ED at 0949. A&Ox3, DAVIS, VSS - HTN/on RA, IV SL - patent, Pain present but tolerable, No tele, Contact Enteric precautions in place, Belongings brought over with pt, Medications sent down to pharmacy for holding, CPOx obtained for SHEILA, Tolerating PO, BRP - up independently. Tired, wanting to sleep. Admission completed. Call light in reach. Care continues.
[2016-10-09] MEDS: HYDROmorphone 0.5 mg/0.5 mL iSecure Syringe IVPUSH PRN (19:13)
[2016-10-09] MEDS: Ondansetron 2 mg/mL 2 mL Inj IVPUSH PRN (19:16)
[2016-10-09] MEDS: Alum-Mag Hydrox-Simeth 30 mL Suspension PO PRN (20:54)
[2016-10-10] VITALS (7 sets, daily range): BP systolic 143–166; BP diastolic 85–98; PULSE 64–80; RESP 16–20; O2SAT 95–100
[2016-10-10] MEDS: Vancomycin 250 mg Oral Capsule PO SCH ×4 (03:18→21:06)
[2016-10-10] MEDS: HYDROmorphone 0.5 mg/0.5 mL iSecure Syringe IVPUSH PRN ×4 (03:18→19:42)
[2016-10-10] MEDS: 0.9% Sodium Chloride 1,000 ML IV SCH ×5 (03:18→23:38)
[2016-10-10] MEDS: Heparin 5,000 Unit/mL Inj SUBQ SCH ×3 (03:25→19:25)
--- NOTE | 2016-10-10 03:29 | NUR ---
Pain/bowels Pt reports pain 7-8/10 throughout the night, PRN dilaudid given with + effects. Pt up to BR independently, using urinal at bedside. Continues with loose bowels. Tolerating PO ABO and full liquid diet. Call light in reach, Care continues.
[2016-10-10] MEDS: Alum-Mag Hydrox-Simeth 30 mL Suspension PO PRN ×2 (05:02→16:12)
[2016-10-10] MEDS: NIFEdipine 30 mg ER24 Tablet PO SCH (08:48)
[2016-10-10] MEDS: Ondansetron 2 mg/mL 2 mL Inj IVPUSH PRN ×2 (13:17→19:42)
[2016-10-10] MEDS: Fluticasone 0.05% 15 Spray/2 Gm 16 Gm Nasal Spray NASAL SCH (13:22)
--- NOTE | 2016-10-10 13:53 | PCM.PNMED ---
Subjective Date of Service Oct 10, 2016 Subjective Patient is in the bed, feeling better. His bowel movements are improving. Exam Vital Signs Vital Sign - Last Date Time Temp Pulse Resp B/P Pulse Ox O2 Delivery O2 Flow Rate FiO2 10/10/16 08:48 77 16 96 Room Air 10/10/16 08:38 36.4 154/85 Intake and Output 10/09/16 10/09/16 10/10/16 Cumulative From/Thru 15:00 23:00 07:00 10/09/16 05:00 - 10/10/16 06:17 Intake Total 400 ml 2178 ml 1117 ml 4695 ml Output Total 1500 ml 2450 ml 3950 ml Balance 400 ml 678 ml -1333 ml 745 ml Intake Oral 100 ml 757 ml 1117 ml 1974 ml IV Total 300 ml 1421 ml 2721 ml Output Urine Total 1500 ml 2450 ml 3950 ml # Voids 3 3 # Bowel Movements 2 1 3 Exam GENERAL: Alert, not in distress, in bed HEAD: atraumatic, normocephalic, no bruises. EYES: EOMI, anicteric, able to fully open and close eyelids SKIN: Skin color normal, turgor normal. No visible rashes or lesions. EAR, NOSE, MOUTH, THROAT: Lips, oral mucosa, tongue are moist, pink, no lesions. NECK: no jugulovenous distention; supple ROM normal. RESPIRATORY: Lungs clear to auscultation. Good diaphragmatic excursion. CARDIAC: normal S1 and S2; no rubs, murmurs, or gallops; regular rate and rhythm ABDOMEN: Abdomen soft, mildly tender. BS normal. No masses or organomegaly. MUSCULOSKELETAL: ROM full, muscles are not tender EXTREMITIES: no pitting edema in LE, no new deformities or skin discoloration. NEURO: Alert, oriented X3, Cranial nerves II-XII intact, Grossly normal motor function. PULSES: 2+ radial, 2+ carotid REVIEW OF SYSTEMS: GENERAL: no malaise, no fevers., SEE HPI HEENT: Negative for frequent or significant headaches All other reviewed and negative other than HPI. Lab and Diagnostics Result Diagram: 10/09/1651410/09/16514 X-Rays, CTs and MRIs RecentMRCP IMPRESSION: Overall, unremarkable MRI appearance of the pancreas. Nonetheless recommend correlation with clinical findings and pancreatic enzymes. Recent CT abdomen IMPRESSION: 1. Acute change is not seen in the CT of the abdomen and pelvis without contrast. Cause of pain is not identified. 2. Previous removal of the left kidney. No evidence for malignancy is seen in the abdomen and pelvis. 3. Moderately enlarged prostate with diffusely thickened bladder wall. 4. Lipoma is in the lower thorax tissues bilaterally right greater than left ecent US IMPRESSION: 1. Diffusely increased hepatic echotexture. This finding is most likely secondary to hepatic fatty infiltration although other hepatocellular disease may have a similar appearance. Recommend clinical correlation. 2. Right kidney is normal in size but demonstrates echogenic cortex suggesting medical renal disease. Recommend clinical correlation. No hydronephrosis. 3. Left nephrectomy. 4. Pancreas not well-seen. Assessment & Plan This is a 59 yo male with past medical history of Hepatitis C , pancreatitis, probably alcohol abuse, C-dif infection, recent admission to the hospital for C. difficile colitis, discharged on October 06 in good condition on Flagyl by mouth. Patient presented today with worsening diarrhea, fatigue, worsened renal function, elevated lipase. C. 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 Hepatitis C. - He has elevated lipase at baseline, unclear etiology - Patient does have a gallbladder, no other elevation in LFTs noted that he does have right upper quadrant/epigastric tenderness. - CT abdominopelvic had had showed no signs of cholelithiasis or choledocholithiasis in the past - Recent MRCP no concern for cholelithiasis and choledocholithiasis Plan - Continue with careful hydration, monitor Hyperparathyroidemia, -- Likely due to renal disease -- Vit D 25 OH levels are ordered Hypertension - Elevated -c/w home meds BPH - stable - Continue home medications GERD, chronic stable --Continue home medications DVT PROPHYLAXIS: heparin Code status: patient would like to be full code Disposition: discharge in 2-3 days after patient improves. Plan of care discussed with ED physician; Labs, radiology tests, recent ECG reviewed. Plan of care, diagnostic procedures and available alternatives were discussed and reviewed with patient. All questions answered. Patient verbalized understanding, approved and agreed to plan of care. [employer]: Intermittant Pneumatic CD Praveen Pitts MD Oct 10, 2016 13:53
[2016-10-10] MEDS: Albuterol 2.5 mg/3 mL Inhalation Solution NEB PRN ×2 (14:18→22:18)
[2016-10-10 15:43] LABS: Mean Corpuscular Hemoglobin 28.5 pg (27.0-35.0); Mean Corpuscular Volume 85.2 fL (81-100)
--- NOTE | 2016-10-10 17:45 | NUR ---
Pain/Nausea/Diet Patient reports intermittent pain /. Requesting zofran prior to pain meds to control nausea. Decreased appetite and PO intake. Attempting to advance diet, currently full liquids, but only tolerating some clears. Last episode of diarrhea this am.
[2016-10-11] MEDS: Alum-Mag Hydrox-Simeth 30 mL Suspension PO PRN ×2 (00:51→20:35)
[2016-10-11] MEDS: Vancomycin 250 mg Oral Capsule PO SCH ×4 (02:30→21:00)
[2016-10-11] MEDS: Heparin 5,000 Unit/mL Inj SUBQ SCH ×3 (03:25→19:25)
[2016-10-11 05:20] VITALS: BP 147/88; PULSE 74; RESP 16; O2SAT 97
--- NOTE | 2016-10-11 05:23 | NUR ---
Pain Patient denied pain predominately through out shift. Steady gait, independent in room. Loose BM this shift. Care continues, intentional rounding.
--- NOTE | 2016-10-11 08:54 | PCM.PNMED ---
Subjective Date of Service Oct 11, 2016 Subjective Patient is in the bed, complaining of loose bowel movements. Exam Vital Signs Vital Sign - Last Date Time Temp Pulse Resp B/P Pulse Ox O2 Delivery O2 Flow Rate FiO2 10/11/16 05:20 36.8 74 16 147/88 97 Room Air Intake and Output 10/10/16 10/10/16 10/11/16 Cumulative From/Thru 15:00 23:00 07:00 10/09/16 05:00 - 10/11/16 04:47 Intake Total 1462 ml 4631 ml 754 ml 83381 ml Output Total 3950 ml Balance 1462 ml 4631 ml 754 ml 7592 ml Intake Oral 2237 ml 4211 ml IV Total 1462 ml 994 ml 754 ml 5931 ml TPN/PPN 1400 ml 1400 ml Output Urine Total 3950 ml # Voids 3 # Bowel Movements 0 3 Exam GENERAL: Alert, not in distress, cooperative HEAD: atraumatic. EYES: , EOMI, anicteric SKIN: Skin color normal, turgor normal. No visible rashes or lesions. EAR, NOSE, MOUTH, THROAT: Lips, oral mucosa, tongue gums, oropharynx are moist , pink, no lesions NECK: no jugulovenous distention; supple ROM normal. RESPIRATORY: Lungs clear to auscultation. Good diaphragmatic excursion. CARDIAC: normal S1 and S2; no rubs, murmurs, or gallops; regular rhythm ABDOMEN: Abdomen soft, mildly tender in lower abdomen. MUSCULOSKELETAL: ROM full, muscles are not tender EXTREMITIES: no pitting edema in LE, no new deformities or skin discoloration. NEURO: Alert, oriented X 3. Cranial nerves II-XII intact, Grossly normal motor function. IVs and Medications Medications Reviewed: Medications were reviewed in detail Lab and Diagnostics Result Diagram: 10/10/16 1529 10/10/16 1529 X-Rays, CTs and MRIs RecentMRCP IMPRESSION: Overall, unremarkable MRI appearance of the pancreas. Nonetheless recommend correlation with clinical findings and pancreatic enzymes. Recent CT abdomen IMPRESSION: 1. Acute change is not seen in the CT of the abdomen and pelvis without contrast. Cause of pain is not identified. 2. Previous removal of the left kidney. No evidence for malignancy is seen in the abdomen and pelvis. 3. Moderately enlarged prostate with diffusely thickened bladder wall. 4. Lipoma is in the lower thorax tissues bilaterally right greater than left ecent US IMPRESSION: 1. Diffusely increased hepatic echotexture. This finding is most likely secondary to hepatic fatty infiltration although other hepatocellular disease may have a similar appearance. Recommend clinical correlation. 2. Right kidney is normal in size but demonstrates echogenic cortex suggesting medical renal disease. Recommend clinical correlation. No hydronephrosis. 3. Left nephrectomy. 4. Pancreas not well-seen. Assessment & Plan This is a 59 yo male with past medical history of Hepatitis C , pancreatitis, probably alcohol abuse, C-dif infection, recent admission to the hospital for C. difficile colitis, discharged on October 06 in good condition on Flagyl by mouth. Patient presented today with worsening diarrhea, fatigue, worsened renal function, elevated lipase. C. 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 Hepatitis C. - He has elevated lipase at baseline, unclear etiology - Patient does have a gallbladder, no other elevation in LFTs noted that he does have right upper quadrant/epigastric tenderness. - CT abdominopelvic had had showed no signs of cholelithiasis or choledocholithiasis in the past - Recent MRCP no concern for cholelithiasis and choledocholithiasis Plan - Continue with careful hydration, monitor Hyperparathyroidemia, -- Likely due to renal disease -- Vit D 25 OH levels are ordered Hypertension - Elevated -c/w home meds BPH - stable - Continue home medications GERD, chronic stable --Continue home medications DVT PROPHYLAXIS: heparin Code status: patient would like to be full code Disposition: discharge in 2-3 days after patient improves. Labs, radiology tests, recent ECG reviewed. Plan of care, diagnostic procedures and available alternatives were discussed and reviewed with patient. All questions answered. Patient verbalized understanding, approved and agreed to plan of care. [employer]: Intermittant Pneumatic CD Praveen Pitts MD Oct 11, 2016 08:54
[2016-10-11 11:47] VITALS: BP 164/98; PULSE 96; RESP 16; O2SAT 96
[2016-10-11] MEDS: NIFEdipine 30 mg ER24 Tablet PO SCH (11:48)
[2016-10-11] MEDS: Fluticasone 0.05% 15 Spray/2 Gm 16 Gm Nasal Spray NASAL SCH (11:49)
[2016-10-11] MEDS: Ondansetron 2 mg/mL 2 mL Inj IVPUSH PRN ×3 (12:09→21:00)
[2016-10-11] MEDS: HYDROmorphone 0.5 mg/0.5 mL iSecure Syringe IVPUSH PRN ×3 (12:09→20:59)
--- NOTE | 2016-10-11 19:23 | NUR ---
Pain/diarrhea Patient medicated for low abd pain x 2 today along with zofran to prevent nausea from pain med. Patient eating fair enough full liquids . Patient still having some stools.
[2016-10-11] MEDS: 0.9% Sodium Chloride 1,000 ML IV SCH (19:25)
[2016-10-11 20:23] VITALS: BP 158/91; PULSE 78; RESP 20; O2SAT 95
[2016-10-12] MEDS: Vancomycin 250 mg Oral Capsule PO SCH ×4 (02:58→20:35)
[2016-10-12] MEDS: Ondansetron 2 mg/mL 2 mL Inj IVPUSH PRN ×4 (02:59→20:36)
[2016-10-12] MEDS: HYDROmorphone 0.5 mg/0.5 mL iSecure Syringe IVPUSH PRN ×4 (03:02→20:36)
[2016-10-12] MEDS: Heparin 5,000 Unit/mL Inj SUBQ SCH ×3 (03:25→19:25)
[2016-10-12 05:33] VITALS: BP 148/87; PULSE 82; RESP 20; O2SAT 95
--- NOTE | 2016-10-12 07:39 | NUR ---
Diarrhea/ Pain Patient requests zofran and dilauded for nausea/pain control. Refuses heparin. Denies chest pain or SOB. Ambulates independently in room. Care continues
--- NOTE | 2016-10-12 08:11 | PCM.PNMED ---
Subjective Date of Service Oct 12, 2016 Subjective Resting in bed with lights off. Diarrhea still present but improving a bit. No fever. Still has diffuse generalized abdominal pain but nausea has resolved. Pain under control, tolerating the PO Vanco OK Exam Vital Signs Vital Sign - Last Date Time Temp Pulse Resp B/P Pulse Ox O2 Delivery O2 Flow Rate FiO2 10/12/16 05:33 36.9 82 20 148/87 95 Room Air Intake and Output 10/11/16 10/11/16 10/12/16 Cumulative From/Thru 15:00 23:00 07:00 10/09/16 05:00 - 10/12/16 05:33 Intake Total 1698 ml 1054 ml 850 ml 75506 ml Output Total 1250 ml 1100 ml 950 ml 7250 ml Balance 448 ml -46 ml -100 ml 7894 ml Intake Oral 1698 ml 1054 ml 850 ml 7813 ml IV Total 5931 ml TPN/PPN 1400 ml Output Urine Total 1250 ml 1100 ml 950 ml 7250 ml # Voids 3 6 # Bowel Movements 1 2 3 9 Exam Skin; warm and dry, no rash Eyes; elissa and eom intact GENT; good hydration, no lesions CV; no obvious murmur Resp; clear GI; soft and non acute, minimal generalized discomfort to paolation Neuro; cn 2-12 intact, no focal defects Lab and Diagnostics Result Diagram: 10/10/16 1529 10/11/16 0918 X-Rays, CTs and MRIs RecentMRCP IMPRESSION: Overall, unremarkable MRI appearance of the pancreas. Nonetheless recommend correlation with clinical findings and pancreatic enzymes. Recent CT abdomen IMPRESSION: 1. Acute change is not seen in the CT of the abdomen and pelvis without contrast. Cause of pain is not identified. 2. Previous removal of the left kidney. No evidence for malignancy is seen in the abdomen and pelvis. 3. Moderately enlarged prostate with diffusely thickened bladder wall. 4. Lipoma is in the lower thorax tissues bilaterally right greater than left ecent US IMPRESSION: 1. Diffusely increased hepatic echotexture. This finding is most likely secondary to hepatic fatty infiltration although other hepatocellular disease may have a similar appearance. Recommend clinical correlation. 2. Right kidney is normal in size but demonstrates echogenic cortex suggesting medical renal disease. Recommend clinical correlation. No hydronephrosis. 3. Left nephrectomy. 4. Pancreas not well-seen. Assessment & Plan This is a 59 yo male with past medical history of Hepatitis C , pancreatitis, probably alcohol abuse, C-dif infection, recent admission to the hospital for C. difficile colitis, discharged on October 06 in good condition on Flagyl by mouth. Patient presented today with worsening diarrhea, fatigue, worsened renal function, elevated lipase. #C. difficile colitis, poa, improving - had flagyl 10-04 to 10-09 - had vanco 10-09 to today - Continue with vancomycin by mouth - pain management with prn IV dilaudid #Acute on Chronic kidney injury stage 4, poa, improving - 3.07 down to 2.27 - Patient does follow with book solicitor as outpatient - base line about 2.5 - discontinue with IV hydration today #Anemia of chronic disease, poa, stable - Stable - Monitor #Elevated lipase, chronic, poa, stable -Hepatitis C. - He has elevated lipase at baseline, unclear etiology - Patient does have a gallbladder, no other elevation in LFTs noted that he does have right upper quadrant/epigastric tenderness. - CT abdominopelvic had had showed no signs of cholelithiasis or choledocholithiasis in the past - Recent MRCP no concern for cholelithiasis and choledocholithiasis - Continue with careful hydration, monitor #Hyperparathyroidemia, poa, stable -- Likely due to renal disease -- Vit D 25 OH levels are ordered #Hypertension, poa, active - Elevated -c/w home meds #BPH, poa, stable - stable - Continue home medications #GERD, poa, stable --Continue home medications DVT PROPHYLAXIS: heparin Code status: patient would like to be full code Disposition: discharge in 2-3 days after patient improves. Labs, radiology tests, recent ECG reviewed. Plan of care, diagnostic procedures and available alternatives were discussed and reviewed with patient. All questions answered. Patient verbalized understanding, approved and agreed to plan of care. [employer]: Intermittant Pneumatic CD Prince Chang MD Oct 12, 2016 08:11
[2016-10-12 08:37] VITALS: BP 149/88; PULSE 69; RESP 18; O2SAT 97
[2016-10-12] MEDS: NIFEdipine 30 mg ER24 Tablet PO SCH (10:49)
[2016-10-12] MEDS: Fluticasone 0.05% 15 Spray/2 Gm 16 Gm Nasal Spray NASAL SCH (10:50)
--- NOTE | 2016-10-12 11:15 | NUR ---
Diet/Pain Pt diet changed to heart healthy this morning and tolerating PO intake. C/O 810 pain abdominally this morning, no c/o n/v, IV Dilaudid given for pain with 4mg IV Zofran to prevent nausea. Care ongoing.
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
[2016-10-12 16:56] VITALS: BP 133/87; PULSE 74; RESP 18; O2SAT 96
[2016-10-12] MEDS: Alum-Mag Hydrox-Simeth 30 mL Suspension PO PRN (17:59)
[2016-10-12 20:30] VITALS: BP 149/95; PULSE 70; RESP 20; O2SAT 93
[2016-10-13] MEDS: Alum-Mag Hydrox-Simeth 30 mL Suspension PO PRN ×3 (02:06→22:47)
[2016-10-13] MEDS: Vancomycin 250 mg Oral Capsule PO SCH ×4 (02:38→20:32)
[2016-10-13] MEDS: Ondansetron 2 mg/mL 2 mL Inj IVPUSH PRN ×4 (02:38→22:46)
[2016-10-13] MEDS: HYDROmorphone 0.5 mg/0.5 mL iSecure Syringe IVPUSH PRN ×5 (02:39→22:47)
[2016-10-13] MEDS: Heparin 5,000 Unit/mL Inj SUBQ SCH ×3 (03:25→19:25)
--- NOTE | 2016-10-13 04:35 | NUR ---
GI/Pain Pt alert, oreinted, and able to make needs known. No decreased in LOC noted. had one episode of large loose BM on this shift. Continues on PO Vanco for C-dif with no concerns. Medicated for abdominal pain with prn dilaudid x2 this shift with good relief. No vomiting and prn zofran admin for nausea. Pt is resting comfortably in bed and call light w/in reach. Care continues.
[2016-10-13 05:40] VITALS: BP 147/85; PULSE 84; RESP 16; O2SAT 98
[2016-10-13 08:05] VITALS: BP 149/97; PULSE 76; RESP 16; O2SAT 96
[2016-10-13] MEDS: Fluticasone 0.05% 15 Spray/2 Gm 16 Gm Nasal Spray NASAL SCH (08:12)
[2016-10-13] MEDS: NIFEdipine 30 mg ER24 Tablet PO SCH (08:12)
--- NOTE | 2016-10-13 09:00 | NUR ---
[facility] signed
--- NOTE | 2016-10-13 10:11 | PCM.PNMED ---
Subjective Date of Service Oct 13, 2016 Subjective Patient lying in bed still with abdominal pain, however oral intake is pretty good. Lipase still elevated. Still requesting IV pain medications. Denies much nausea. Exam Vital Signs Vital Sign - Last Date Time Temp Pulse Resp B/P Pulse Ox O2 Delivery O2 Flow Rate FiO2 10/13/16 08:05 36.4 76 16 149/97 96 Room Air Intake and Output 10/12/16 10/12/16 10/13/16 Cumulative From/Thru 15:00 23:00 07:00 10/09/16 05:00 - 10/13/16 05:45 Intake Total 1036 ml 35951 ml Output Total 700 ml 7950 ml Balance 336 ml 8230 ml Intake Oral 1036 ml 8849 ml IV Total 5931 ml TPN/PPN 1400 ml Output Urine Total 700 ml 7950 ml # Voids 6 # Bowel Movements 4 13 Exam Skin; warm and dry, no rash Eyes; elissa and eom intact GENT; good hydration, no lesions CV; no obvious murmur, regular Resp; clear to A&P GI; soft and non acute, minimal generalized discomfort to palpation, non focal Neuro; cn 2-12 intact, no focal defects Lab and Diagnostics Result Diagram: 10/10/16 1529 10/13/16 0620 X-Rays, CTs and MRIs RecentMRCP IMPRESSION: Overall, unremarkable MRI appearance of the pancreas. Nonetheless recommend correlation with clinical findings and pancreatic enzymes. Recent CT abdomen IMPRESSION: 1. Acute change is not seen in the CT of the abdomen and pelvis without contrast. Cause of pain is not identified. 2. Previous removal of the left kidney. No evidence for malignancy is seen in the abdomen and pelvis. 3. Moderately enlarged prostate with diffusely thickened bladder wall. 4. Lipoma is in the lower thorax tissues bilaterally right greater than left ecent US IMPRESSION: 1. Diffusely increased hepatic echotexture. This finding is most likely secondary to hepatic fatty infiltration although other hepatocellular disease may have a similar appearance. Recommend clinical correlation. 2. Right kidney is normal in size but demonstrates echogenic cortex suggesting medical renal disease. Recommend clinical correlation. No hydronephrosis. 3. Left nephrectomy. 4. Pancreas not well-seen. Assessment & Plan This is a 59 yo male with past medical history of Hepatitis C , pancreatitis, probably alcohol abuse, C-dif infection, recent admission to the hospital for C. difficile colitis, discharged on October 06 in good condition on Flagyl by mouth. Patient presented today with worsening diarrhea, fatigue, worsened renal function, elevated lipase. #C. difficile colitis, poa, improving - had flagyl 10-04 to 10-09 - had vanco 10-09 to today - Continue with vancomycin by mouth - pain management with prn IV dilaudid, discussed with patient will needto D/c IV dilaudid tomorrow if patient continues to improve #Acute on Chronic kidney injury stage 4, poa, improving - 3.07 down to 2.27 - Patient does follow with precision aircraft structure assembler as outpatient - base line about 2.5 - discontinue with IV hydration today #Anemia of chronic disease, poa, stable - Stable - Monitor #Elevated lipase, chronic, poa, stable - Hepatitis C. - He has elevated lipase at baseline, unclear etiology - Patient does have a gallbladder, no other elevation in LFTs noted that he does have right upper quadrant/epigastric tenderness. - CT abdominopelvic had had showed no signs of cholelithiasis or choledocholithiasis in the past - Recent MRCP no concern for cholelithiasis and choledocholithiasis - Continue with careful hydration, monitor #Hyperparathyroidemia, poa, stable -- Likely due to renal disease -- Vit D 25 OH levels are ordered #Hypertension, poa, active - Elevated -c/w home meds #BPH, poa, stable - stable - Continue home medications #GERD, poa, stable --Continue home medications #Possible Sleep Apnea and COPD -per patient he has a c-pap machine (that he uses only occasionally) and a nebulizer at his home but his has a restraining order, no contact, in place. Social service has contacted the and police and are trying to get this back for patient. He nesds to get these back but presently he is OK without them for the short future, 1-3 weeks. DVT PROPHYLAXIS: heparin Code status: patient would like to be full code Disposition: discharge in 2-3 days after patient improves. Labs, radiology tests, recent ECG reviewed. Plan of care, diagnostic procedures and available alternatives were discussed and reviewed with patient. All questions answered. Patient verbalized understanding, approved and agreed to plan of care. VTE Mechanical Devices: Intermittant Pneumatic CD Prince Chang MD Oct 13, 2016 10:11
[2016-10-13] MEDS ORDERED: oxyCODONE-Acetamin 5-325 mg Tablet PO PRN (10:15)
--- NOTE | 2016-10-13 10:57 | NUR ---
Pain Pt continues to state 8/10 pain in his abdominal area; .5mg IV dilaudid given as ordered, pt sleeps when RN is out of the room. Per pt some diarrhea last night during NOC shift but none so far this morning yet. Care ongoing.
[2016-10-13 12:28] VITALS: BP 148/96; PULSE 75; RESP 18; O2SAT 97
[2016-10-13 12:45] VITALS: PULSE 113; RESP 18; O2SAT 95
--- NOTE | 2016-10-13 15:42 | NUR ---
Social Work: Continued Discharge Planning/Multidisciplinary Rounds D: EMR reviewed. Pt is on day 4 of hospitalization. Pt discussed in multidisciplinary rounds and is not medically stable for discharge home, anticipate 1 more day. MAGALY discussed pt's missing nebulizer and CPAP device with . stated that pt will need his CPAP device eventually and needs to do everything he can to retrieve device. stated nebulizer is not as important but pt also needs to attempt to retrieve nebulizer. MAGALY updated that pt's ex-SO has CPAP and Nebulizer and has a no contact order placed against her and is legally not supposed to contact pt. Pt gave consent to contact ex-SO. T/C to pt's ex-SO Tamera requesting she return CPAP and Nebulizer to main information desk at the hospital and leave a note to get equipment to Social Work at [phone]. SW did not confirm if pt was hospitalized or not. Pt gave consent to contact Tamera and request CPAP and Nebulizer. MAGALY informed Tamera that if she is able to return items to lockstitch front edge tape sewer, SW will retrieve items. Tamera stated she has the CPAP and Nebulizer at her house that her son just purchased and she will have to look for the items because her son won't know where to find them. SW requested she return items to hospital as soon as possible as they belong to pt. Tamera agreeable. MAGALY did not confirm any other information. Pt requested information on how to apply for subsidized housing. SW provided pt with information for [employer] regarding housing (https://www.[employer].org/menus/dfphmnq-heukiggo-zlzrbf.html#How to Apply). Pt states he can stay with his friend until he is accepted into housing and will look over resources and call tomorrow. Pt contacted PD dispatch to file police report for missing items. Pt stated police came and told pt they will not file a police report and pt needs to take the case to small claims court. updated and MD stated that pt needs medical equipment and should reattempt to file police report if equipment not returned to hospital. A: Pt who is independent at baseline and has the capacity for self-care. P: SW provided housing application information for [employer]. SW to call ex-SO again and request CPAP and Nebulizer to be returned to main info desk. SW consulted SW shipping and receiving supervisor for policy and procedure on retrieving DME in regard to existing no-contact order against pt's ex-SO. Pt agreeable to plan. SW will continue to follow for discharge needs. Pt's friend will provide transport home when medically stable. Pt can stay with friend until he can get housing - pt will apply through [employer]. Pt's barrier to safe discharge is retrieving CPAP machine - states pt will eventually need and CPAP machine is prescribed based on sleep study - something that can't be done during this hospital stay. GUSTAVO Gresham Addendum: 10/13/16 at 1627 by DANG FALLON T/C to Tamera. Tamera stated that pt's friend brought CPAP and Nebulizer to pt's friend Randy who will bring to pt. MAGALY confirmed we will not be contacting Tamera any longer. Tamera agreeable. MAGALY met with pt and pt confirmed his friend Randy will bring his CPAP and Nebulizer to pt prior to discharge. GUSTAVO Gresham
[2016-10-13 16:04] VITALS: BP 153/87; PULSE 73; RESP 16; O2SAT 98
[2016-10-13 19:50] VITALS: BP 139/85; PULSE 76; RESP 17; O2SAT 94
[2016-10-14] VITALS: BP 131/80; PULSE 74; RESP 17; O2SAT 96
[2016-10-14 00:17] VITALS: BP 131/80; PULSE 74; RESP 17; O2SAT 96
[2016-10-14] MEDS: Vancomycin 250 mg Oral Capsule PO SCH ×4 (02:33→20:53)
[2016-10-14] MEDS: HYDROmorphone 0.5 mg/0.5 mL iSecure Syringe IVPUSH PRN (03:04)
[2016-10-14] MEDS: Heparin 5,000 Unit/mL Inj SUBQ SCH ×3 (03:25→17:54)
[2016-10-14 05:05] VITALS: BP 127/82; PULSE 72; RESP 17; O2SAT 98
--- NOTE | 2016-10-14 05:17 | NUR ---
Pain Patient states pain is 7/10. still asking for IV pain medication. Patient states he is concerned he with just vomit oral medication back up. Patient educated that he will need to transition to oral medication prior to heading home. Zofran given near beginning of shift for nausea after patient ate. Care continues.
[2016-10-14 06:42] LABS: BASOPHILS % (AUTO) 0.5 % (0-3); EOSINOPHILS % (AUTO) 3.2 % (0-5); MONOCYTES % (AUTO) 15.4 % (4-12); Mean Corpuscular Hemoglobin 28.3 pg (27.0-35.0); Mean Corpuscular Volume 84.3 fL (81-100); NEUTROPHILS % (AUTO) 54.2 % (40-74); Platelet Count 107 bil/L (150-400)
[2016-10-14] MEDS: NIFEdipine 30 mg ER24 Tablet PO SCH (08:33)
[2016-10-14] MEDS: Fluticasone 0.05% 15 Spray/2 Gm 16 Gm Nasal Spray NASAL SCH (08:34)
--- NOTE | 2016-10-14 08:56 | PCM.PNMED ---
Subjective Date of Service Oct 14, 2016 Subjective Ambulating in room. Eating well pernursing staff. Stools are starting to firm up. Pain and discomfort better. Exam Vital Signs Vital Sign - Last Date Time Temp Pulse Resp B/P Pulse Ox O2 Delivery O2 Flow Rate FiO2 10/14/16 05:05 36.8 72 17 127/82 98 Room Air Intake and Output 10/13/16 10/13/16 10/14/16 Cumulative From/Thru 15:00 23:00 07:00 10/09/16 05:00 - 10/14/16 06:20 Intake Total 936 ml 800 ml 1974 ml 66088 ml Output Total 1025 ml 600 ml 1050 ml 37980 ml Balance -89 ml 200 ml 924 ml 9265 ml Intake Oral 936 ml 800 ml 1974 ml 66240 ml IV Total 5931 ml TPN/PPN 1400 ml Output Urine Total 1025 ml 600 ml 1050 ml 14337 ml # Voids 4 10 # Bowel Movements 0 1 0 14 Exam Skin; warm and dry, no rash Eyes; elissa and eom intact GENT; good hydration, no lesions CV; no obvious murmur, regular Resp; clear to A&P GI; soft and non acute, minimal generalized discomfort to palpation, non focal Neuro; cn 2-12 intact, no focal defects Lab and Diagnostics Result Diagram: 10/14/16 0510/14/16 0546 X-Rays, CTs and MRIs RecentMRCP IMPRESSION: Overall, unremarkable MRI appearance of the pancreas. Nonetheless recommend correlation with clinical findings and pancreatic enzymes. Recent CT abdomen IMPRESSION: 1. Acute change is not seen in the CT of the abdomen and pelvis without contrast. Cause of pain is not identified. 2. Previous removal of the left kidney. No evidence for malignancy is seen in the abdomen and pelvis. 3. Moderately enlarged prostate with diffusely thickened bladder wall. 4. Lipoma is in the lower thorax tissues bilaterally right greater than left ecent US IMPRESSION: 1. Diffusely increased hepatic echotexture. This finding is most likely secondary to hepatic fatty infiltration although other hepatocellular disease may have a similar appearance. Recommend clinical correlation. 2. Right kidney is normal in size but demonstrates echogenic cortex suggesting medical renal disease. Recommend clinical correlation. No hydronephrosis. 3. Left nephrectomy. 4. Pancreas not well-seen. Assessment & Plan This is a 59 yo male with past medical history of Hepatitis C , pancreatitis, probably alcohol abuse, C-dif infection, recent admission to the hospital for C. difficile colitis, discharged on October 06 in good condition on Flagyl by mouth. Patient presented today with worsening diarrhea, fatigue, worsened renal function, elevated lipase. #C. difficile colitis, poa, improving - had flagyl 10-04 to 10-09 - had vanco 10-09 to today - Continue with vancomycin by mouth - will stop the IV dilaudid today. Patient says he can not use Tylenol because he only has one kidney, I explained that that is not a reason to not take tylenol, it should be safe. #Acute on Chronic kidney injury stage 4, poa, improving - 3.07 down to 2.27 - Patient does follow with cake mixer as outpatient - base line about 2.5 - discontinue with IV hydration today #Anemia of chronic disease, poa, stable - Stable - Monitor #Elevated lipase, chronic, poa, stable - Hepatitis C. - He has elevated lipase at baseline, unclear etiology - Patient does have a gallbladder, no other elevation in LFTs noted that he does have right upper quadrant/epigastric tenderness. - CT abdominopelvic had had showed no signs of cholelithiasis or choledocholithiasis in the past - Recent MRCP no concern for cholelithiasis and choledocholithiasis - Continue with careful hydration, monitor -repeat Lipase and bmp in am #Hyperparathyroidemia, poa, stable -- Likely due to renal disease -- Vit D 25 OH levels are ordered #Hypertension, poa, active - Elevated -c/w home meds #BPH, poa, stable - stable - Continue home medications #GERD, poa, stable --Continue home medications #Possible Sleep Apnea and COPD -per patient he has a c-pap machine (that he uses only occasionally) and a nebulizer at his home but his has a restraining order, no contact, in place. Social service has contacted the and police and are trying to get this back for patient. He nesds to get these back but presently he is OK without them for the short future, 1-3 weeks. DVT PROPHYLAXIS: heparin Code status: patient would like to be full code Disposition: discharge in 2-3 days after patient improves. Labs, radiology tests, recent ECG reviewed. Plan of care, diagnostic procedures and available alternatives were discussed and reviewed with patient. All questions answered. Patient verbalized understanding, approved and agreed to plan of care. VTE Mechanical Devices: Intermittant Pneumatic CD Prince Chang MD Oct 14, 2016 08:56
[2016-10-14 11:57] VITALS: BP 148/88; PULSE 71; RESP 18; O2SAT 95
--- NOTE | 2016-10-14 11:58 | NUR ---
Social Work- Readiness for Discharge/Multidisciplinary Rounds Data: EMR reviewed. Pt is on day 5 of hospitalization. Pt discussed in multidisciplinary rounds, pt is likely to d/c home tomorrow. CPAP and nebulizer were brought by patient's friend are in patient's room at bedside. Per care trends pt has been ambulating in the room SBA. No additional SW needs identified in rounds at this time. Pt anticipated to d/c home with friend to transport via POV. No additional d/c needs anticipated, SW continues to follow. Assessment: Pt who is independent at baseline. Plan: Pt anticipated to d/c home with friend to transport via POV. No additional d/c needs anticipated, SW continues to follow. GUSTAVO Couch
[2016-10-14 12:00] VITALS: PULSE 71; RESP 18; O2SAT 95
--- NOTE | 2016-10-14 14:40 | NUR ---
N/V Pt states that he vomited after attempting to eat his lunch. Pt has an egg salad sandwich and ate 1/4 of it before he vomited it back up. Pt states that his medications from this morning stayed down. Offered to wait a while to give PO Vanco but pt states "no just give it to me now it will stay down." PO Vanco given. Offered Antinausea medications although pt refuses these as well. Pt unable to answer whether he feels sick to his stomach prior to vomiting or if the food just comes back up. Aks pt how this RN can help but pt states "I don't need anything." Care continues Addendum: 10/14/16 at 1443 by LINA MCDONALD RN No c/o pain all day at this time.
[2016-10-14 19:45] VITALS: BP 129/75; PULSE 69; RESP 16; O2SAT 97
[2016-10-14] MEDS ORDERED: VANC250C3 PO (22:14)
[2016-10-14] MEDS: Alum-Mag Hydrox-Simeth 30 mL Suspension PO PRN (22:39)
--- NOTE | 2016-10-15 00:39 | NUR ---
Nausea Patient states he has mild nausea this shift, but hasn't been interested in anti-nausea medication. Patient states he thinks the nausea he experiences after eating is related to a hiatal hernia. Patient states he doesn't need anything for pain yet this shift. Patient A&OX3. Vitals stable. Patient states he continues to have diarrhea x2 today. Care continues.
[2016-10-15] MEDS: Vancomycin 250 mg Oral Capsule PO SCH ×4 (02:37→20:42)
[2016-10-15] MEDS: Ondansetron 2 mg/mL 2 mL Inj IVPUSH PRN ×2 (03:18→04:04)
[2016-10-15] MEDS: Heparin 5,000 Unit/mL Inj SUBQ SCH ×3 (03:25→19:25)
[2016-10-15 05:28] VITALS: BP 147/88; PULSE 75; RESP 16; O2SAT 97
[2016-10-15] MEDS: Alum-Mag Hydrox-Simeth 30 mL Suspension PO PRN ×2 (05:30→22:37)
[2016-10-15] MEDS: NIFEdipine 30 mg ER24 Tablet PO SCH (14:44)
[2016-10-15] MEDS: Fluticasone 0.05% 15 Spray/2 Gm 16 Gm Nasal Spray NASAL SCH (14:46)
[2016-10-15 15:42] VITALS: BP 162/111; PULSE 67; RESP 20; O2SAT 98
--- NOTE | 2016-10-15 16:33 | NUR ---
Appetite/stools Patient not eating meals very well but is requesting pop and ice cream to eat and drink. Patient has not complained of nausea thus far today and has not requested anything for pain. Patient does still have some loose stools noted.
[2016-10-15] MEDS ORDERED: NIFEdipine 30 mg ER24 Tablet PO ONE (19:00)
[2016-10-15] MEDS: 0.9% Sodium Chloride 1,000 ML IV SCH (20:42)
[2016-10-15 21:45] VITALS: BP 134/86; PULSE 76; RESP 16; O2SAT 96
--- NOTE | 2016-10-15 22:15 | PCM.PNMED ---
Subjective Date of Service Oct 15, 2016 Subjective Patient is seen and examined. He states that he is not eating too much, he thinks that he may be getting abdominal pain after eating. His been eating okay per nursing staff, having formed stools. He is not too happy that his IV Dilaudid was discontinued yesterday. Exam Vital Signs Vital Sign - Last Date Time Temp Pulse Resp B/P Pulse Ox O2 Delivery O2 Flow Rate FiO2 10/15/16 15:42 36.2 67 20 162/111 98 Room Air Intake and Output 10/14/16 10/14/16 10/15/16 Cumulative From/Thru 14:59 22:59 06:59 10/09/16 05:00 - 10/15/16 05:25 Intake Total 760 ml 1154 ml 46562 ml Output Total 750 ml 850 ml 07363 ml Balance 10 ml 304 ml 9579 ml Intake Oral 760 ml 1154 ml 03996 ml IV Total 5931 ml TPN/PPN 1400 ml Output Urine Total 750 ml 850 ml 45045 ml # Voids 10 # Bowel Movements 1 17 Exam Gen.: No acute distress HEENT: NCAT Heart: Regular rate and rhythm no S3-S4 murmurs Lungs clear to auscultation no crackles or wheezes Abdominal examination: Mild tenderness in right upper quadrant, normal bowel sounds soft , nondistended Extremities no edema Psych: Mildly agitated Neuro: No focal deficits IVs and Medications Medications Reviewed: Medications were reviewed in detail Lab and Diagnostics Result Diagram: 10/14/16 0546 10/15/16 0515 X-Rays, CTs and MRIs RecentMRCP IMPRESSION: Overall, unremarkable MRI appearance of the pancreas. Nonetheless recommend correlation with clinical findings and pancreatic enzymes. Recent CT abdomen IMPRESSION: 1. Acute change is not seen in the CT of the abdomen and pelvis without contrast. Cause of pain is not identified. 2. Previous removal of the left kidney. No evidence for malignancy is seen in the abdomen and pelvis. 3. Moderately enlarged prostate with diffusely thickened bladder wall. 4. Lipoma is in the lower thorax tissues bilaterally right greater than left ecent US IMPRESSION: 1. Diffusely increased hepatic echotexture. This finding is most likely secondary to hepatic fatty infiltration although other hepatocellular disease may have a similar appearance. Recommend clinical correlation. 2. Right kidney is normal in size but demonstrates echogenic cortex suggesting medical renal disease. Recommend clinical correlation. No hydronephrosis. 3. Left nephrectomy. 4. Pancreas not well-seen. Assessment & Plan This is a 59 yo male with past medical history of Hepatitis C , pancreatitis, probably alcohol abuse, C-dif infection, recent admission to the hospital for C. difficile colitis, discharged on October 06 in good condition on Flagyl by mouth. Patient presented today with worsening diarrhea, fatigue, worsened renal function, elevated lipase. #C. difficile colitis, poa, improving - had flagyl 10-04 to 10-09 - had vanco 10-09 to today - Continue with vancomycin by mouth #Acute on Chronic kidney injury stage 4, poa, improving - 3.07 to 2.27-2.79 today - Patient does follow with hematology specialist as outpatient - base line about 2.5 -Restarted IV hydration today as kidney function to the slightly worse turn -Continue to hold losartan #Anemia of chronic disease, poa, stable - Stable - Monitor #Elevated lipase, chronic, poa, stable - Hepatitis C. - He has elevated lipase at baseline, unclear etiology - Patient does have a gallbladder, no other elevation in LFTs noted that he does have right upper quadrant/epigastric tenderness. - CT abdominopelvic had had showed no signs of cholelithiasis or choledocholithiasis in the past - Recent MRCP no concern for cholelithiasis and choledocholithiasis - Continue with careful hydration, monitor -repeat Lipase and bmp in am - HIDA Scan is ordered #Hyperparathyroidemia, poa, presumed stable -- Likely due to renal disease -- Vit D 25 OH levels are ordered during her last admission 21.3 (30-100 normal) -- will start supplementation #Hypertension, poa, uncontrolled -Because lisinopril is held due to poor renal function, increased his nifedipine to 30 more milligrams daily #BPH, poa, presumed stable - stable - Continue home medications #GERD, poa, stable --Continue home medications #Possible Sleep Apnea and COPD -per patient he has a c-pap machine (that he uses only occasionally) and a nebulizer at his home but his has a restraining order, no contact, in place. Social service has contacted the and police and are trying to get this back for patient. He nesds to get these back but presently he is OK without them for the short future, 1-3 weeks. DVT PROPHYLAXIS: heparin Code status: patient would like to be full code Disposition: discharge in 2-3 days after patient improves. Labs, radiology tests reviewed. Plan of care, diagnostic procedures and available alternatives were discussed and reviewed with patient. All questions answered. Patient verbalized understanding, approved and agreed to plan of care. VTE Mechanical Devices: Intermittant Pneumatic CD Resuscitation Status: CPR: Attempt Resuscitation Time spent 30 min Malina Cummings DO Oct 15, 2016 22:15
[2016-10-16] MEDS: Vancomycin 250 mg Oral Capsule PO SCH ×4 (03:02→20:21)
[2016-10-16] MEDS: Heparin 5,000 Unit/mL Inj SUBQ SCH ×3 (03:25→19:25)
[2016-10-16] MEDS: 0.9% Sodium Chloride 1,000 ML IV SCH ×3 (04:13→20:30)
[2016-10-16 06:15] VITALS: BP 150/91; PULSE 72; RESP 18; O2SAT 97
--- NOTE | 2016-10-16 06:22 | NUR ---
NOC PT has been awake all night. PT states this is his normal routine at home. HE likes to go to sleep in am. PT c/o abdominal cramping but declined any percocet as he lists an intolerance to it and says he will vomit. PT drinking milk and coca cola ice cream floats. Requested maalox once. VS WNL. PT denied having any diarrhea this shift. Voiding in urinal adequate amounts of urine. NS at 100 via L forearm. PT refuses his heparin SQ. PT planning for d/c when renal function improves. WIll CTM with current poc.
[2016-10-16] MEDS: Fluticasone 0.05% 15 Spray/2 Gm 16 Gm Nasal Spray NASAL SCH (10:49)
[2016-10-16] MEDS: NIFEdipine 30 mg ER24 Tablet PO SCH (10:50)
[2016-10-16 15:02] VITALS: BP 138/89; PULSE 71; RESP 18; O2SAT 96
--- NOTE | 2016-10-16 17:40 | NUR ---
pt continues to refuse Heparin/GI "I don't need that, I move enough" Pt states he feels better compared to yesterday, less discomfort, denies nausea, eating a little soft diet and taking fluids OK
[2016-10-16 19:39] VITALS: BP 131/86; PULSE 71; RESP 18; O2SAT 97
[2016-10-16 20:15] VITALS: PULSE 73; RESP 18; O2SAT 98
[2016-10-16 20:24] VITALS: BP 135/88; PULSE 73; RESP 18; O2SAT 98
--- NOTE | 2016-10-16 21:48 | PCM.PNMED ---
Subjective Date of Service Oct 16, 2016 Subjective Patient is seen and examined. He states that he has had 3 bowel movements yesterday but only one today. He states that he is having "stomach ache", poor appetite. He states that he does get some substernal burning pain after he eats because of his hiatal hernia. Exam Vital Signs Vital Sign - Last Date Time Temp Pulse Resp B/P Pulse Ox O2 Delivery O2 Flow Rate FiO2 10/16/16 20:24 73 18 135/88 98 10/16/16 19:39 36.2 Room Air Intake and Output 10/15/16 10/15/16 10/16/16 Cumulative From/Thru 15:00 23:00 07:00 10/09/16 05:00 - 10/16/16 06:34 Intake Total 4118 ml 03138 ml Output Total 1075 ml 11993 ml Balance 3043 ml 71054 ml Intake Oral 3272 ml 36814 ml IV Total 846 ml 6777 ml TPN/PPN 1400 ml Output Urine Total 1075 ml 55258 ml # Voids 4 14 # Bowel Movements 0 17 Exam Gen.: No acute distress HEENT: NCAT Heart: Regular rate and rhythm no S3-S4 murmurs Lungs clear to auscultation no crackles or wheezes Abdominal examination: Mild tenderness in right upper quadrant, normal bowel sounds soft , nondistended Extremities no edema Psych: Mildly agitated Neuro: No focal deficits IVs and Medications IV Fluids Normal saline 100 mL per hour Medications Reviewed: Medications were reviewed in detail Lab and Diagnostics Result Diagram: 10/14/16 0546 10/16/16 0520 X-Rays, CTs and MRIs RecentCP IMPRESSION: Overall, unremarkable MRI appearance of the pancreas. Nonetheless recommend correlation with clinical findings and pancreatic enzymes. Recent CT abdomen IMPRESSION: 1. Acute change is not seen in the CT of the abdomen and pelvis without contrast. Cause of pain is not identified. 2. Previous removal of the left kidney. No evidence for malignancy is seen in the abdomen and pelvis. 3. Moderately enlarged prostate with diffusely thickened bladder wall. 4. Lipoma is in the lower thorax tissues bilaterally right greater than left ecent US IMPRESSION: 1. Diffusely increased hepatic echotexture. This finding is most likely secondary to hepatic fatty infiltration although other hepatocellular disease may have a similar appearance. Recommend clinical correlation. 2. Right kidney is normal in size but demonstrates echogenic cortex suggesting medical renal disease. Recommend clinical correlation. No hydronephrosis. 3. Left nephrectomy. 4. Pancreas not well-seen. PROCEDURE: NM HIDA SCAN WITH CCK INDICATIONS: RUQ PAIN IMPRESSION: Normal examination without evidence of cholecystitis. Dictated by: Maryellen Bowman MD, PhD on 10/16/2016 at 16:08 Approved by: Maryellen Bowman MD, PhD on 10/16/2016 at 16:09 Assessment & Plan This is a 59 yo male with past medical history of Hepatitis C , pancreatitis, probably alcohol abuse, C-dif infection, recent admission to the hospital for C. difficile colitis, discharged on October 06 in good condition on Flagyl by mouth. Patient presented today with worsening diarrhea, fatigue, worsened renal function, elevated lipase. #C. difficile colitis, poa, improving - had flagyl 10-04 to 10-09 - had vanco 10-09 to today - Continue with vancomycin by mouth -- Patient does not seem to be convinced that his C. difficile is indeed getting better, will consider ID consult # Nausea and poor appetite, POA -- We will consider GI consult for an upper endoscopy #Acute on Chronic kidney injury stage 4, poa, improving - 3.07 to 2.27-2.79 ->2.73today - Patient does follow with fitness worker as outpatient - base line about 2.5 -Restarted IV hydration 10/15 as kidney function to the slightly worse turn -Continue to hold losartan #Anemia of chronic disease, poa, stable - Stable - Monitor #Elevated lipase, chronic, poa, stable - Hepatitis C. - He has elevated lipase at baseline, unclear etiology - Patient does have a gallbladder, no other elevation in LFTs noted that he does have right upper quadrant/epigastric tenderness. - CT abdominopelvic had had showed no signs of cholelithiasis or choledocholithiasis in the past - Recent MRCP no concern for cholelithiasis and choledocholithiasis - Continue with careful hydration, monitor -repeat Lipase and bmp in am - HIDA Scan is ordered: normal EF #Hyperparathyroidemia, poa, presumed stable -- Likely due to renal disease -- Vit D 25 OH levels are ordered during her last admission 21.3 (30-100 normal) -- will start supplementation #Hypertension, poa, uncontrolled -Because lisinopril is held due to poor renal function, increased his nifedipine to 30 more milligrams daily #BPH, poa, presumed stable - stable - Continue home medications #GERD, poa, stable --Continue home medications #Possible Sleep Apnea and COPD -Patient states now he has a CPAP machine DVT PROPHYLAXIS: heparin Code status: patient would like to be full code Disposition: discharge in 2-3 days after patient improves. Labs, radiology tests reviewed. Plan of care, diagnostic procedures and available alternatives were discussed and reviewed with patient. All questions answered. Patient verbalized understanding, approved and agreed to plan of care. Pain Evaluation: Pain not Controlled VTE Mechanical Devices: Intermittant Pneumatic CD Resuscitation Status: CPR: Attempt Resuscitation Time spent 25 min Malina Cummings DO Oct 16, 2016 21:47
[2016-10-17] MEDS: Alum-Mag Hydrox-Simeth 30 mL Suspension PO PRN (02:20)
[2016-10-17] MEDS: Vancomycin 250 mg Oral Capsule PO SCH ×2 (02:23→10:24)
[2016-10-17] MEDS: Heparin 5,000 Unit/mL Inj SUBQ SCH ×3 (03:25→19:25)
--- NOTE | 2016-10-17 04:18 | NUR ---
Activity Pt continues to refuse subcu Heparin injections stating "I get up and move all the time." Pt is also refusing IV fluids, MD is aware. Pt reports one loose stool this shift, he received PO Maalox once for heartburn. Pt has been NPO since midnight for possible upper endoscopy pending GI consult today per MD notes. Pt has no c/o pain/N/V this shift.
[2016-10-17 04:54] VITALS: BP 147/85; PULSE 81; RESP 20; O2SAT 95
--- NOTE | 2016-10-17 08:44 | PCM.CHPMED ---
Subjective Date of Service: Oct 17, 2016 Provider requesting consult: Malina Cummings DO Primary Physician: Admitting Physician: Praveen Pitts MD Primary Care Physician: Lucrecia Glover PA-C Attending Physician: Malina Cummings DO Admit Status: From the Emergency Department Chief Complaint: Chief Complaint: Persistent abdominal cramping and diarrhea History of Present Illness: Estevan Ortiz is a 66-year-old gentleman with a history of HTN, HepC, pancreatitis, GERD, esophageal stricture s/p dilation, sleep apnea, ITP, left- sided renal cell carcinoma s/p nephrectomy, and recent admission for C. difficile colitis, discharged on October 06 in good condition on Flagyl PO. He presented with the complaint of worsening diarrhea and abdominal cramping since being discharged on 10/09. He states that his symptoms never improved and that he is actually really upset that he was discharged at that time. He states that he did not feel like he was treated and his diarrhea ongoing. He reports liquid stool and decreased appetite along with nausea and vomiting prior to admission. He states that he generally has felt terrible for several months and reports multiple visits to the ED for similar symptoms. Chart review reveals multiple ED visits since February of this year for similar symptoms which was attributed to gastroenteritis and C.diff colitis. An abdominal ultrasound on 10/04 showed diffusely increased hepatic echo texture most likely secondary to hepatic fatty infiltration. After which an MRCP was done on 10/04 which was overall unremarkable. A CT abdomen and pelvis was done on 10/03 which showed no acute changes and no cause of pain was identified. HIDA SCAN on 10/16 was normal examination without evidence of cholecystitis. He denies fever, chills, diaphoresis, shortness of breath or chest pain. Review of Systems: A comprehensive review of systems was conducted with the patient and found to be negative except as above in the History of Present Illness. PMH Past Medical History Left-sided renal cell carcinoma s/p laparoscopic left nephrectomy, 2012 Idiopathic thrombocytopenic purpura (ITP), status post steroid treatment. Pancreatitis Hepatitis C Asthma Hypertension Peptic ulcer disease GERD Esophageal stricture dilated in the past Recovering alcoholic x20+ years. Bipolar disorder ADHD, PTSD BPH Obstructive sleep apnea Chronic back pain Left-sided kidney stone Surgical History Laparoscopic left nephrectomy, 2012 Tonsillectomy Esophageal stricture dilatation Right hydrocelectomy Right total knee arthroplasty Left total hip arthroplasty Fractured right patella with five prior orthopedic surgeries Allergies: Coded Allergies: Penicillins (Verified Allergy, Severe, HIVES, 10/09/16) acetaminophen (Verified Adverse Reaction, Severe, n/v, 10/09/16) amlodipine (Verified Adverse Reaction, Severe, swelling legs, 10/09/16) codeine (Verified Adverse Reaction, Severe, N&V, 10/09/16) hydrocodone (Verified Adverse Reaction, Severe, severe N/V, 10/09/16) oxycodone (Verified Adverse Reaction, Severe, severe N/V, 10/09/16) Uncoded Allergies: CAT HAIR (Allergy, Unknown, UNKNOWN, 07/07/12) OPIATES (Adverse Reaction, Severe, GI UPSET, 05/31/15) Social History Hx Alcohol Use: Yes (-SOBER 27 YRS)Hx Substance Use: NoHx Tobacco Use: No Smoking Status: Former Smoker Exam Vital Signs Vital Sign - Last Date Time Temp Pulse Resp B/P Pulse Ox O2 Delivery O2 Flow Rate FiO2 10/17/16 04:54 36.3 81 20 147/85 95 Room Air Intake and Output 10/16/16 10/16/16 10/17/16 Cumulative From/Thru 15:00 23:00 07:00 10/09/16 05:00 - 10/17/16 06:26 Intake Total 872 ml 640 ml 05768 ml Output Total 875 ml 60162 ml Balance -3 ml 640 ml 73908 ml Intake Oral 872 ml 640 ml 83781 ml IV Total 6777 ml TPN/PPN 1400 ml Output Urine Total 875 ml 19916 ml # Voids 1 15 # Bowel Movements 0 0 17 General: Ill-appearing, elderly male. Appears agitated but in no acute distress. Frustrated but appropriately interactive. HEENT: Atraumatic. PERRLA, EOMI. Anicteric sclera. Mucous membranes moist/pink Pulmonary: Lung sounds diminished with somewhat poor inspiratory effort but mostly clear to auscultation with mild diffuse crackles. Cardiovascular: Regular rate/rhythm. No murmurs Abdomen: Soft, non-distended, diffusely tender to palpation. No rebound or guarding. Hypoactive bowel tones. Skin: Warm and dry. No obvious rashes or ulcerations Neurological: AOx3, No focal neurologic deficit. Normal speech Psychiatric: Normal mood and affect. Communicating appropriately Lab and Diagnostics Labs Laboratory Tests Test 10/17/16 08:00 Sodium Level 139mEq/L (134-144) Potassium Level 4.4mEq/L (3.5-5.2) Chloride Level 103mEq/L (97-108) Carbon Dioxide Level 24mmol/L (18-29) Blood Urea Nitrogen 19mg/dL (8-27) Creatinine 2.63mg/dL (0.76-1.27) Estimat Glomerular Filtration Rate 26mL/min (>59) Glucose Level 92mg/dL (60-99) Calcium Level 9.1mg/dL (8.5-10.1) Total Bilirubin 0.4mg/dL (0.0-1.2) Aspartate Amino Transf (AST/SGOT) 33U/L (0-50) Alanine Aminotransferase (ALT/SGPT) 40U/L (0-44) Alkaline Phosphatase 92U/L (25-160) Total Protein 7.0g/dL (6.4-8.4) Albumin 3.9g/dL (3.4-5.0) Lipase 208U/L (13-60) Microbiology 10/09/16 Urine Culture - No growth Result Diagram: 10/14/16 0546 10/16/16 0520 X-Rays, CTs and MRIs 10/16/16 - NM HIDA SCAN WITH CCK IMPRESSION: Normal examination without evidence of cholecystitis. Approved by: Maryellen Bowman MD, PhD on 10/16/2016 at 16:09 10/04/16 - US ABDOMEN IMPRESSION: 1. Diffusely increased hepatic echotexture. This finding is most likely secondary to hepatic fatty infiltration although other hepatocellular disease may have a similar appearance. Recommend clinical correlation. 2. Right kidney is normal in size but demonstrates echogenic cortex suggesting medical renal disease. Recommend clinical correlation. No hydronephrosis. 3. Left nephrectomy. 4. Pancreas not well-seen. Approved by: Dennis Hagan M.D. on 10/04/2016 at 22:17 10/04/16 - MR ABDOMEN MRCP IMPRESSION: Overall, unremarkable MRI appearance of the pancreas. Nonetheless recommend correlation with clinical findings and pancreatic enzymes. Approved by: Marty Nichols M.D. on 10/04/2016 at 12:25 10/03/16 - CT ABDOMEN AND PELVIS WITHOUT CONTRAST IMPRESSION: 1. Acute change is not seen in the CT of the abdomen and pelvis without contrast. Cause of pain is not identified. 2. Previous removal of the left kidney. No evidence for malignancy is seen in the abdomen and pelvis. 3. Moderately enlarged prostate with diffusely thickened bladder wall. 4. Lipoma is in the lower thorax tissues bilaterally right greater than left Approved by: Randy Werner M.D. on 10/03/2016 at 20:26 . Assessment & Plan Assessment 66-year-old gentleman with a history of HTN, HepC, pancreatitis, GERD, esophageal stricture s/p dilation, sleep apnea, ITP, left-sided renal cell carcinoma s/p nephrectomy, and recent admission for C. difficile colitis, discharged on October 06 in good condition on Flagyl PO. He presented with the complaint of worsening diarrhea and abdominal cramping since discharge on 10/09. Persistent abdominal pain in a patient with a history of recently treated C.diff colitis and chronically elevated lipase consistent with pancreatitis. - Patient w/nausea and decreased appetite with multiple presentations and admission since February of this year without clear cause for all of his symptoms. - LFTs unremarkable, HIDA scan on 10/16 was normal without evidence of acute cholecystitis; CT abdominopelvic had had showed no signs of cholelithiasis or choledocholithiasis in the past. Recent MRCP no concern for cholelithiasis and choledocholithiasis RECOMMENDATIONS: - Clear liquid diet today - Start bowel this afternoon - EGD and colonoscopy tomorrow Additional problems managed by primary medicine team: -Acute kidney injury on CKD stage 4 -Anemia of chronic disease, thrombocytopenia -C. difficile colitis - Hepatitis C. -Hyperparathyroidemia, -Hypertension, chronic -BPH . Problems: Pain Evaluation: Pain not Controlled VTE Mechanical Devices: Intermittant Pneumatic CD Resuscitation Status: CPR: Attempt Resuscitation Debbie Blank DO Oct 17, 2016 08:44 Additional problems managed by primary medicine team: -Acute kidney injury on CKD stage 4 -Anemia of chronic disease, thrombocytopenia -C. difficile colitis - Hepatitis C. -Hyperparathyroidemia, -Hypertension, chronic -BPH . Problems: Pain Evaluation: Pain not Controlled VTE Mechanical Devices: Intermittant Pneumatic CD Resuscitation Status: CPR: Attempt Resuscitation Debbie Blank DO Oct 17, 2016 08:44
[2016-10-17] MEDS: NIFEdipine 30 mg ER24 Tablet PO SCH (10:23)
[2016-10-17] MEDS: Fluticasone 0.05% 15 Spray/2 Gm 16 Gm Nasal Spray NASAL SCH (10:24)
[2016-10-17] MEDS: 0.9% Sodium Chloride 1,000 ML IV SCH ×2 (10:30→20:29)
[2016-10-17 10:42] VITALS: PULSE 77; RESP 16; O2SAT 96
--- NOTE | 2016-10-17 13:49 | CONS ---
[address] [address] CONSULTATION REPORT PATIENT: ISABEL MAGANA : 1950 MR#: [id number] ADMIT: 10/09/2016 JOB ID: [id number] DATE OF SERVICE: 10/17/[address] Cummings for this timely consult. REASON FOR CONSULTATION: Clostridium difficile. HISTORY OF THE PRESENT ILLNESS: The patient is a complex, 66-year-old gentleman who was admitted here in the latter part of September with persistent nausea, vomiting, and diarrhea, as well as some chronic renal injury of unknown cause. During the course of that workup, it was found that the patient had C. difficile and he was treated initially with Flagyl and discharged home after a brief hospital stay just between October 04 and October 06. Unfortunately, the patient did not do well and returned to the facility just a couple days later and was admitted on October 09 with worsening diarrhea, fatigue, abdominal pain, continued renal insufficiency, and diarrhea. It was also noted at that time, that he had an elevated lipase, and the question of pancreatitis came into play, so he was readmitted on October 09. Initially, he had been treated with Flagyl for his C. difficile that was diagnosed in late September, but that was subsequently changed to oral vancomycin at the time of his readmission. The patient reports that since being placed on oral vancomycin now over a week ago, he has continued to have nausea with rare vomiting and persistent diarrhea, up to four five stools per day. He thinks he is not improving on this therapy for Clostridium difficile, and Dr. Cummings has asked me to investigate whether or not he actually is getting better, and if not, what else we could do to enhance his Clostridium difficile therapy. He has also had workup for his elevated lipase, but so far, these studies have been negative including MRCP and so it remains unclear whether or not he may have any pancreatitis, but it sounds as if probably not. His other medical problems are relatively stable at this time, though he does have a wide variety of ongoing issues. The GI service has been evaluating this patient as well and they are considering doing upper and lower endoscopy today to try and establish the cause of his chronic vague abdominal pains, nausea, and diarrhea. PAST MEDICAL HISTORY: Extensive in this elderly gentleman. 1. Pulmonary nodules, 2014: Note that during this workup of pulmonary nodules, he was found to have a QuantiFERON Gold which apparently has never been addressed. It was also noted that a bronchoscopy was done and that the AFB cultures were negative. Recent x-rays indicate these pulmonary nodules have strangely resolved. 2. Hepatitis C of unknown duration and severity. 3. History of alcoholism, which he quit 25 years ago. 4. Positive SULAIMAN. 5. Left nephrectomy for renal cell carcinoma. 6. Hypertension. 7. Chronic renal insufficiency. 8. ITP. 9. History of bipolar disorder. 10. Esophageal stricture, status post dilatation. 11. Obstructive sleep apnea. 12. Severe PENICILLIN ALLERGY with anaphylaxis. SOCIAL HISTORY: The patient is a retired steel construction worker. He used to smoke cigarettes but quit a long time ago and he quit drinking about 25 years ago. He currently lives with a roommate, but he is planning to move to [place], [place], to be near his 21-year-old son and he plans to leave in the near future. FAMILY HISTORY: Negative for tuberculosis in first- or second-degree relatives, and the patient has no idea how he could have acquired latent tuberculosis. REVIEW OF SYSTEMS: Was done. At this point, the patient feels weak and tired. He is not having significant fever or chills at this point. He has no significant headache or sore throat. No stiff neck, cough. He does have persistent nausea, rare vomiting, and about five loose bowel movements per day, by his report. He is having no dysuria, no swelling of the joints, and no new neurologic complaints. The remainder of the review of systems is negative. PHYSICAL EXAMINATION: Reveals a reasonably comfortable, elderly gentleman. Temp 36.7, pulse 81, respiratory rate 20, blood pressure 147/85. He is saturating well on room air, and he is in no distress. He is alert and oriented and able to give a reasonably good history today. He has no temporal wasting. No conjunctivitis or scleral icterus. Nose normal. Oral cavity without thrush, hairy leukoplakia or pharyngitis. The neck is supple without adenopathy. His lungs are relatively clear. A few scattered wheezes bilaterally. Cardiac tones: Regular rate and rhythm. His abdomen is soft and largely nontender without hepatosplenomegaly, rebound, guarding or abnormal bowel sounds. He does not have a Love catheter. There is no inguinal adenopathy noted. His lower extremities are relatively free of edema. There is no evidence for synovitis and he is neurologically intact. No skin rash is noted. LABORATORIES: Include white count is basically normal since admission, now 6000. His platelets are normal. His creatinine 2.63, and going back a couple years, this has been remarkably stable and I am not sure he has any acute renal injury as his creatinines seem always to be around 2.5 and have been since about three years ago. His LFTs are normal. Lipase also consistently elevated. It looks like it has been elevated since mid September or so. Procalcitonin zero. Urinalysis: 6-10 white cells. SULAIMAN done earlier this year was positive, speckled pattern of 1:160. HIV negative. Micro includes the positive Clostridium difficile from October 03. During this admission we have really nothing going on in cultures except for urine culture that was clean on October 09. IMAGING: Includes a HIDA scan that was done just yesterday which was basically normal, and he had an MRCP done October 04 during that admission, which was normal in terms of pancreas. In reviewing the ins and outs as recorded by the nurses, they are reporting very few bowel movements and it is not clear how to resolve this discrepancy between the nurses who report zero or one bowel movement, per day, and the patient who reports consistently five. IMPRESSION: This is a complex patient with multiple underlying medical problems, who was evaluated for persistent nausea, vomiting, and some diarrhea back in late September and was found to have Clostridium difficile. He got treated for a few days with Flagyl which we know is inferior therapy and then came back and was admitted on October 09, some nine days ago. Since then, he has been on excellent oral doses of vancomycin and he reports he is not better, though Dr. Cummings and the other staff seem to think that he is better in terms of resolving diarrhea. Oddly, the patient complains he still has just as many bowel movements as before as well as some nausea and vague abdominal pain. I understand that the gastrointestinal physicians are considering upper and lower endoscopy today and I think that would be an excellent plan to try and get to the bottom of this. With respect to his Clostridium difficile, virtually everyone is improved by day five or so unless they are developing toxic megacolon or some life-threatening complication, and I suspect that either his diarrhea is not as bad as he is portraying it, or that it has a 2nd cause or a different cause which we may uncover by colonoscopy. Another issue here is his latent TB. He was shown to have latent TB back in 2013 when he had a positive QuantiFERON gold coupled with a negative bronchoscopy and AFB culture. His pulmonary nodules seem to have resolved on followup imaging which is most interesting and suggests that whatever cause there were for the 2014 pulmonary nodules, it was a benign process which has now resolved. Using the Etece calculator tool, we have determined that his lifetime risk of reactivation of his latent TB is about 1% and his chance of a severe hepatotoxicity from treatment is about 5%, so at this point, it would seem the better part of valor to just observe his latent TB which is very unlikely to reactivate in his lifetime unless he gets TNF inhibitors, steroids, or cancer chemotherapy. RECOMMENDATIONS: 1. To satisfy the patient's persistent concerns about his C. difficile coming back or not being treated enough, I think I would complete two weeks of vancomycin 125 p.o. q.i.d. and then follow that with a tapering dose of 125 p.o. b.i.d. for two weeks, then 125 once a day for two weeks, and then finish out with 125 mg every other day for about two more weeks to complete a total of at least eight weeks of therapy. This is associated with a low relapse rate and should be very efficacious. 2. I discussed the natural history of C. difficile with the patient and told him he may have some loose stools for a while even after successful treatment and that I think he is going to do well with respect to his therapy at this point. 3. I would not treat the patient's latent tuberculosis at this point, as I think the risks outweigh the benefits. The patient was made aware of the latent TB diagnosis though and this should be followed should he develop renal failure requiring dialysis or require immunosuppressive therapies to the point his risk of latent TB reactivation increases significantly. 4. Thank you very much for this timely consult. I am going to go ahead and sign off at this point, but do not hesitate to call me if there are additional issues or problems.
[2016-10-17 13:55] VITALS: BP 154/97; PULSE 71; RESP 18; O2SAT 96
--- NOTE | 2016-10-17 13:59 | NUR ---
NUTRITION ASSESSMENT: ASSESS: 66 YO male admitted for c-diff infection/colitis and pancreatitis. Pt with continued loose stools, abd. pain and weakness. Pt currently on clear liquids and will be NPO at midnight for EGD and colonoscopy tomorrow. PMHx: Hepatitis C, pancreatitis, probable ETOH abuse, c-diff infection / colitis, HTN, GERD, esophageal stricture s/p dilation, SHEILA, left sided renal cell carcinoma s/p nephrectomy, idiopathic thrombocytopenia purpura, bipolar, ADHD, PTSD. LABS: Reviewed. Cr 2.63, Alb 3.9, Lipase 208. MEDS: Reviewed. GI: BM x 2 (10/15) CURRENT WT: 97.1 kg. Admit wt: 98.4 kg (bed scale) 10/06/16: 85.8 kg (standing scale) DIET: Clear liquids. PO intake has been 25-100% most meals since admit. EST. NEEDS: 6992-6991 kcals (20-22 kcals/kg BW), 85-105 g protein (1.2-1.5 g/kg IBW) NUTRITION DIAGNOSIS: 1.) Altered GI function related to alteration in GI tract function related to recurrent c-diff infection with chronic diarrhea. NUTRITION INTERVENTION: 1.) Recommend advancing diet as able s/p procedures. 2.) Recommend getting new standing scale wt to better assess for wt trends and calculate est. needs more accurately. MONITOR / EVAL: PO intake, labs, nutritional status. Follow per moderate nutritional risk guidelines.
[2016-10-17] MEDS: Vancomycin 125 mg Oral Capsule PO SCH ×2 (14:30→20:24)
[2016-10-17] MEDS ORDERED: PEG/Electrolytes 4,000 mL Solution PO ONE (16:00)
--- NOTE | 2016-10-17 19:13 | PCM.PNMED ---
Subjective Date of Service Oct 17, 2016 Subjective Patient is pleasant today, though he does not like being in clear liquids. He says he is not eating much anyways but he especially does not likely liquids. He is appreciative of infectious disease and GI consults. Still endorsing anorexia and nausea. No other concerns Exam Vital Signs Vital Sign - Last Date Time Temp Pulse Resp B/P Pulse Ox O2 Delivery O2 Flow Rate FiO2 10/17/16 13:55 36.2 71 18 154/97 96 Room Air Intake and Output 10/16/16 10/16/16 10/17/16 Cumulative From/Thru 15:00 23:00 07:00 10/09/16 05:00 - 10/17/16 06:26 Intake Total 872 ml 640 ml 31801 ml Output Total 875 ml 87168 ml Balance -3 ml 640 ml 67136 ml Intake Oral 872 ml 640 ml 77099 ml IV Total 6777 ml TPN/PPN 1400 ml Output Urine Total 875 ml 87452 ml # Voids 1 15 # Bowel Movements 0 0 17 Exam Gen.: No acute distress HEENT: Normocephalic, atraumatic Heart: Regular rate and rhythm no S3-S4 sounds Lungs clear to auscultation no crackles wheezes Abdomen: Round nondistended, soft, nontender Extremities: Negative for edema Psych: Mood is pleasant affect is neutral Neurological: No focal deficits IVs and Medications IV Fluids Normal saline 100 cc per hour Medications Reviewed: Medications were reviewed in detail Lab and Diagnostics Result Diagram: 10/14/16 0546 10/17/16 0800 X-Rays, CTs and MRIs RecentMRCP IMPRESSION: Overall, unremarkable MRI appearance of the pancreas. Nonetheless recommend correlation with clinical findings and pancreatic enzymes. Recent CT abdomen IMPRESSION: 1. Acute change is not seen in the CT of the abdomen and pelvis without contrast. Cause of pain is not identified. 2. Previous removal of the left kidney. No evidence for malignancy is seen in the abdomen and pelvis. 3. Moderately enlarged prostate with diffusely thickened bladder wall. 4. Lipoma is in the lower thorax tissues bilaterally right greater than left ecent US IMPRESSION: 1. Diffusely increased hepatic echotexture. This finding is most likely secondary to hepatic fatty infiltration although other hepatocellular disease may have a similar appearance. Recommend clinical correlation. 2. Right kidney is normal in size but demonstrates echogenic cortex suggesting medical renal disease. Recommend clinical correlation. No hydronephrosis. 3. Left nephrectomy. 4. Pancreas not well-seen. PROCEDURE: NM HIDA SCAN WITH CCK INDICATIONS: RUQ PAIN IMPRESSION: Normal examination without evidence of cholecystitis. Dictated by: Maryellen Bowman MD, PhD on 10/16/2016 at 16:08 Approved by: Maryellen Bowman MD, PhD on 10/16/2016 at 16:09 Assessment & Plan This is a 59 yo male with past medical history of Hepatitis C , pancreatitis, probably alcohol abuse, C-dif infection, recent admission to the hospital for C. difficile colitis, discharged on October 06 in good condition on Flagyl by mouth. Patient presented today with worsening diarrhea, fatigue, worsened renal function, elevated lipase. #C. difficile colitis, poa, improving - had flagyl 10-04 to 10-09 - had vanco 10-09 to today - Continue with vancomycin by mouth -- Patient does not seem to be convinced that his C. difficile is indeed getting better, ID is consulted. We appreciate their recommendations -- Per Dr. Knapp: "To satisfy the patient's persistent concerns about his C. difficile coming back or not being treated enough, I think I would complete two weeks of vancomycin 125 p.o. q.i.d. and then follow that with a tapering dose of 125 p.o. b.i.d. for two weeks, then 125 once a day for two weeks, and then finish out with 125 mg every other day for about two more weeks to complete a total of at least eight weeks of therapy. This is associated with a low relapse rate and should be very efficacious." # Nausea and poor appetite, POA -- GI consult for an upper endoscopy. Dr. Amanda has seen the patient, plans to take patient for both colonoscopy and EGD in the a.m. -- Nothing by mouth after midnight, GI place him on clear liquid diet -- We appreciate GI recommendations #Acute on Chronic kidney injury stage 4, poa, improving - 3.07 to 2.27-2.79 ->2.73-->2.63 - Patient does follow with horse riding coach or instructor as outpatient (Dr. Tello) - base line about 2.5 -Restarted IV hydration 10/15 as kidney function to the slightly worse turn -Continue to hold losartan #Anemia of chronic disease, poa, stable - Stable - Monitor #Elevated lipase, chronic, poa, stable - Hepatitis C. - He has elevated lipase at baseline, unclear etiology - Patient does have a gallbladder, no other elevation in LFTs noted that he does have right upper quadrant/epigastric tenderness. - CT abdominopelvic had had showed no signs of cholelithiasis or choledocholithiasis in the past - Recent MRCP no concern for cholelithiasis and choledocholithiasis - Continue with careful hydration, monitor -repeat Lipase and bmp in am - HIDA Scan is ordered: normal EF #Hyperparathyroidemia, poa, presumed stable -- Likely due to renal disease -- Vit D 25 OH levels are ordered during her last admission 21.3 (30-100 normal) -- He is on D3 1000 mg Daily supplementation #Hypertension, poa, uncontrolled -Because lisinopril is held due to poor renal function, increased his nifedipine to 30 more milligrams daily #BPH, poa, presumed stable - stable - Continue home medications #GERD, poa, stable --Continue home medications -- Pantoprazole is held due to renal dysfunction #Possible Sleep Apnea and COPD -Patient states now he has a CPAP machine # Chronic latent tuberculosis (from records in 2013) -- Infectious disease recommend not treating at this time due to risks outweighing benefits -- I have asked patient to let his horse riding coach or instructor know about this diagnosis DVT PROPHYLAXIS: heparin Code status: patient would like to be full code Disposition: discharge in 2-3 days after patient improves. Labs, radiology tests reviewed. Plan of care, diagnostic procedures and available alternatives were discussed and reviewed with patient. All questions answered. Patient verbalized understanding, approved and agreed to plan of care. Pain Evaluation: Adequate Pain Control VTE Mechanical Devices: Intermittant Pneumatic CD Resuscitation Status: CPR: Attempt Resuscitation Time spent 25 min Malina Cummings DO Oct 17, 2016 14:21
[2016-10-17 20:28] VITALS: BP 156/101; PULSE 75; RESP 16; O2SAT 96
[2016-10-17] MEDS ORDERED: PEG/Electrolytes 4,000 mL Solution PO SCH (20:30)
[2016-10-17 21:32] VITALS: BP 142/88; PULSE 66
[2016-10-17 22:00] VITALS: PULSE 81; RESP 20; O2SAT 96
[2016-10-18] VITALS (7 sets, daily range): BP systolic 142–169; BP diastolic 82–109; PULSE 67–77; RESP 14–20; O2SAT 94–100
[2016-10-18] MEDS: Vancomycin 125 mg Oral Capsule PO SCH ×3 (02:29→15:00)
[2016-10-18] MEDS: Heparin 5,000 Unit/mL Inj SUBQ SCH ×2 (03:25→11:25)
--- NOTE | 2016-10-18 03:28 | NUR ---
GI Pt is alert, oriented, and able to make needs known. No decreased in LOC noted. Denies nausea or vomiting. Continues on GoLytely prep for endo procedure with three large loose stool far so, per pt "i am very clean by now" when asked if the prep is working. No c/o pain on this shift so far. No adverse side effect noted from PO Vanco. Will continue to monitor. NPO at 7Am per orders and pt aware.
[2016-10-18] MEDS: 0.9% Sodium Chloride 1,000 ML IV SCH ×3 (06:30→16:30)
--- NOTE | 2016-10-18 09:38 | PCM.HPANE ---
Patient Data Surgeon Admitting Provider:Praveen Pitts MD Attending Provider:Malina Cummings DO Primary Care Physician:Lucrecia Glover PA-C Other Provider: Reason for Visit C Diff,Pancreatitis Ht/WT & BMI Height (Feet): 5 Height (Inches): 8.00 Weight (Kilograms): 97.400 Body Mass Index 28.80 Allergies Coded Allergies: Penicillins (Verified Allergy, Severe, HIVES, 10/09/16) acetaminophen (Verified Adverse Reaction, Severe, n/v, 10/09/16) amlodipine (Verified Adverse Reaction, Severe, swelling legs, 10/09/16) codeine (Verified Adverse Reaction, Severe, N&V, 10/09/16) hydrocodone (Verified Adverse Reaction, Severe, severe N/V, 10/09/16) oxycodone (Verified Adverse Reaction, Severe, severe N/V, 10/09/16) Uncoded Allergies: CAT HAIR (Allergy, Unknown, UNKNOWN, 07/07/12) OPIATES (Adverse Reaction, Severe, GI UPSET, 05/31/15) Past Anesthesia History Anesthesia History: Denies:: Abnormal Airway, Anesthesia Reactions, Difficult Intubation, Fam Anesthesia Reaction, Fam Malignant Hypertherm, Malignant Hyperthermia Diabetes History Hx Diabetes?: No MRSA MRSA: No Medications Blood Thinner: Aspirin Hypertension Medication: Yes Home Meds Incl Beta Aly: Yes Date Beta Aly Taken: Oct 18, 2016 Time Beta Aly Taken: 09:00 Previous Beta Aly Dose >24: Previous Dose <24 Hours Active Scripts Vancomycin 250 Mg [id number] Mg PO Q6 10 Days Prov:Malina Cummings DO 10/14/16 Metronidazole (Flagyl)500 Mg [id number] Mg PO Q8 #36 TABLET Prov:Malina Cummings DO 10/06/16 Ondansetron ODT (Zofran ODT)4 Mg Tablet4 Mg PO Q4H PRN For Nausea #10 TABLET Prov:Juno Le MD 10/01/16 Carvedilol 25 Mg Seybzf42 Mg PO BIDWM 30 Days Ref 0 Prov:Keturah Wisdom MD 06/08/15 Reported Medications Losartan Potassium 25 Mg Drcivx24 Mg PO DAILY #90 10/09/16 Terazosin 2 Mg Capsule4 Mg PO HS Ref 0 10/09/16 Terazosin 2 Mg Capsule2 Ng PO MORNING #270 10/09/16 Levothyroxine 50 Mcg Trejxs38 Mcg PO DAILY #90 10/09/16 Nifedipine ER (Adalat CC)60 Mg Naooer44 Mg PO DAILY #90 10/09/16 Fluticasone Propionate (Flonase Allergy Relief)50 Mcg/Actuation Browns.susp2 Sprays NS DAILY 05/31/15 Finasteride 5 Mg Tablet5 Mg PO DAILY 07/11/13 Albuterol Sulfate (Ventolin HFA Inhaler)200 Puff/18 Gm Inhaler2 Puff INH Q4 PRN For Shortness of Breath 07/11/13 History History of ENT Problems?: Yes HEENT History: Positive for:: Dysphagia (has esophageal dilatation for stricture in past ) Denies:: Abnormal Airway Cataracts Difficult Intubation Glaucoma Hearing Problem Sinus Problem Denture Type: Full- Upper Teeth Condition: Missing Teeth Hx of Heart Problems?: Yes Cardiovascular History: Positive for:: Chest Pain (in past ) Hypertension Denies:: AICD Cardiac Surgery Congestive Heart Failure Edema Heart Murmur Irregular Heartbeat Pacemaker Thrombophlebitis Valvular Heart Disease Hx of Respiratory Problem?: Yes Respiratory History: Positive for:: Asthma Pneumonia Use of C-PAP Machine (SHEILA+) Denies:: COPD Chest Surgery Cough Dyspnea Emphysema Hemoptysis Tuberculosis Hx Neurologic Problems?: No Neurological History: Denies:: Alzheimer's Disease CVA Dementia Dizziness Headaches Parkinson's Disease Seizures Hx of GI Problems?: Yes Gastrointestinal History: Positive for:: Hepatitis Liver Disease Hx of Problems?: Yes Genitourinary History: Positive for:: Urinary Tract Infection Denies:: HX of Hemodialysis Kidney Stones HX of Peritoneal Dialysis: No Other History/Comment CKSs4 Male Hx: Positive for:: Prostate Problems (BPH) Testicular Surgery ( right hydrocelectomy ) Denies:: Scrotal Mass (hx Hydrocele) Skin History: Positive for:: History Skin Disorders? 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 Blood Transfusions Denies:: Blood Transfuse Reaction Hx Diabetes: No Hx Alcohol Use: Yes (-SOBER 27 YRS)Hx Substance Use: No Smoking Status: Former Smoker Have You Smoked inLast 12 mo: No Stop/Bang Treated for Sleep Apnea?: Yes Do You Have a CPAP Machine?: Yes S-Snoring: Do You Snore Loudly: Yes T-Tired: feel tired, fatigued: Yes O-Obsered: Observed not breath: Yes P-Blood Pressure: treated: Yes B- Body Mass Index > 35 kg/m2: No A- Age over 50: Yes N- Neck Large Circumference: No G- Gender Male: Yes SHEILA Total Score: 5 SHEILA Risk Assessment: High Risk, =/>3 Yes SHEILA Category 2: Yes Risk Assessment Category Category 1A: Patient has history of documented sleep apnea, and HAS NOT received any narcotic, sedative or anesthesia administration during this stay. Category 1B: Patient has history of documented sleep apnea, and HAS received any narcotic , sedative or anesthesia administration during this stay Category 2: Patient has SUSPECTED Obstructive Sleep Apnea, and HAS received any narcotic , sedative or anesthesia administration during this stay. Category 3: Patient has SUSPECTED Obstructive Sleep Apnea and HAS NOT received narcotic, sedative or anesthesia administration during this stay. Category 4: Outpatient in Procedural Areas with known sleep apnea or who screen positive for High Risk via the STOP/BANG questionnaire. Exam Exam Vital Signs Vital Signs Date Time Temp Pulse Resp B/P Pulse Ox O2 Delivery O2 Flow Rate FiO2 10/18/16 08:49 36.2 75 18 160/106 95 10/18/16 05:26 36.3 72 16 144/83 95 Room Air General Appearance: Alert, Oriented X3, Cooperative, No Acute Distress HEENT/AIRWAY: MP 2 Lungs: Clear to Auscultation Heart: Exam Unremarkable, Regular Rate/Rhythm, Normal S1, Normal S2, No Murmurs /Rubs/Gallops Meds/Labs/Diagnostics Admission Meds Current Medications Vancomycin HCl (Vancomycin Oral Capsule) 125 mg Q6 PO Last administered on t 02:29; Start 10/17/16 at 14:30 Polyethylene Glycol/ Electrolytes (Colyte) 4,000 ml ONCE ONCE PO Last administered on 10/17/16 17:35; Start 10/17/16 at 16:00; Stop 10/17/16 at 16:01; Status DC Famotidine (Pepcid) 10 mg BID PO Last administered on 10/17/16 20:24; Start 10/17/16 at 20:30 Labs Test 10/09/16 05:15 10/09/16 07:15 10/13/16 06:20 10/14/16 05:46 Prothrombin Time 11.1sec (8.1-12.5) Prothromb Time International Ratio 1.04ratio Lactic Acid Level 0.8mmol/L (0.4-2.0) Magnesium Level 2.1mg/dL (1.6-2.6) Urine Color Yellow (YELLOW) Urine Appearance Hazy (CLEAR,HAZY) Urine pH 7.0 (5.0-8.0) Urine Specific [place] 1.015 (1.003-1.035) Urine Protein 100mg/dL (NEG,TRACE) Urine Glucose (UA) Negativemg/dL (NEGATIVE) Urine Ketones Negativemg/dL (NEGATIVE) Urine Occult Blood Trace (NEGATIVE) Urine Nitrite Negative (NEGATIVE) Urine Bilirubin Negative (NEGATIVE) Urine Urobilinogen Normalmg/dL (NORMAL) Urine Leukocyte Esterase Trace (NEGATIVE) Urine RBC 0-2/hpf (0-2) Urine WBC 6-10/hpf (0-5) Urine Epithelial Cells Occasional/hpf (NONE-MOD) Urine Crystals None seen (NONE SEEN) Urine Bacteria None/hpf (NONE-FEW) Urine Hyaline Casts None/lpf (NONE) Urine Granular Casts None seen (NONE SEEN) Urine Waxy Casts None seen (NONE SEEN) Urine Red Blood Cell Casts None seen (NONE SEEN) Urine White Blood Cell Casts None seen (NONE SEEN) Urine Mucus None seen (None Seen) Urine Trichomonas None seen (NONE SEEN) Urine Yeast None (NONE SEEN) Urinalysis Comment None Urine Culture Reflexed Indicated Procalcitonin 0.05ng/mL (0.00-0.08) White Blood Count 6.0th/mm3 (3.8-10.1) Red Blood Count 4.34mil/mm3 (4.40-5.80) Hemoglobin 12.3g/dL (13.8-17.2) Hematocrit 36.6% (41.0-50.0) Mean Corpuscular Volume 84.3fL (81-100) Mean Corpuscular Hemoglobin 28.3pg (27.0-35.0) Mean Corpuscular Hemoglobin Concent 33.6% (32.0-37.0) Red Cell Distribution Width 13.5% (12.3-15.4) Platelet Count 107bil/L (150-400) Neutrophils (%) (Auto) 54.2% (40-74) Lymphocytes (%) (Auto) 26.5% (14-46) Monocytes (%) (Auto) 15.4% (4-12) Eosinophils (%) (Auto) 3.2% (0-5) Basophils (%) (Auto) 0.5% (0-3) C-Reactive Protein < 0.0mg/dL (0.0-0.5) Test 10/18/16 05:25 Sodium Level 142mEq/L (134-144) Potassium Level 3.9mEq/L (3.5-5.2) Chloride Level 106mEq/L (97-108) Carbon Dioxide Level 21mmol/L (18-29) Blood Urea Nitrogen 15mg/dL (8-27) Creatinine 2.23mg/dL (0.76-1.27) Estimat Glomerular Filtration Rate 31mL/min (>59) Glucose Level 78mg/dL (60-99) Calcium Level 8.5mg/dL (8.5-10.1) Total Bilirubin 0.4mg/dL (0.0-1.2) Aspartate Amino Transf (AST/SGOT) 28U/L (0-50) Alanine Aminotransferase (ALT/SGPT) 37U/L (0-44) Alkaline Phosphatase 86U/L (25-160) Total Protein 6.5g/dL (6.4-8.4) Albumin 3.6g/dL (3.4-5.0) Lipase 161U/L (13-60) Plan Impression Patient chart reviewed, patient interviewed and anesthestic plan with risks, benefits, and alternatives discussed, and informed consent obtained. NPO per Anesth. Guidelines: Yes ASA Physical Status: ASA3 Severe Disease Anesthetic Plan: MAC Bene/Risks/Altern/Consents: Yes HP Complete Prior to Induction: Yes Momo Lea MD Oct 18, 2016 09:38
--- NOTE | 2016-10-18 10:15 | PCM.ANEP1 ---
Post Anesthesia PACU Phase 1 Assessment Vital Signs Vital Signs Date Time Temp Pulse Resp B/P Pulse Ox O2 Delivery O2 Flow Rate FiO2 10/18/16 10:10 77 16 142/97 99 Room Air 10/18/16 10:05 36.8 74 14 142/82 100 Nasal Cannula 10/18/16 09:30 36.3 77 20 158/101 94 Room Air 10/18/16 08:49 36.2 75 18 160/106 95 10/18/16 05:26 36.3 72 16 144/83 95 Room Air Anesthetic Administered: MAC Level of Alertness: Awake, talking Pain: No Pain Scale Score: 8 Nausea or Vomiting: No CV Function & Hydration Stable: Yes Airway Device: Oxygen Delivery: Room Air Lungs: Normal Air Movement PACU Phase 2 Assessment Complications: No Follow up Care: No Patient Instructions Provided: N/A Momo Lea MD Oct 18, 2016 10:15
[2016-10-18] MEDS: Fluticasone 0.05% 15 Spray/2 Gm 16 Gm Nasal Spray NASAL SCH (10:45)
[2016-10-18] MEDS: NIFEdipine 30 mg ER24 Tablet PO SCH (10:45)
--- NOTE | 2016-10-18 11:02 | ENDO ---
[address] [address] ENDOSCOPY PROCEDURE PATIENT: ISABEL MAGANA : 1950 MR#: [id number] ADMIT: 10/09/2016 JOB ID: [id number] DATE OF SERVICE: 10/18/2016 TYPE OF OPERATION: 1. Esophagogastroduodenoscopy with biopsy. 2. Colonoscopy with biopsy. PREOPERATIVE DIAGNOSIS(ES): 1. Nausea. 2. Vomiting. 3. Gastroesophageal reflux disease. 4. Diarrhea. POSTOPERATIVE DIAGNOSIS(ES): 1. Distal esophageal ring/stricture located at 40 cm in which this scope was able to pass with some difficulty, status post biopsy. 2. A 2 mm ascending colon polyp, removed by cold biopsy forceps. ANESTHESIA: Monitored anesthesia care. COMPLICATIONS: None. ESTIMATED BLOOD LOSS: Minimal. DESCRIPTION OF PROCEDURE: After risks and benefits explained to the patient, informed consent was obtained. After anesthesia administered, upper endoscope was then inserted into the mouth, intubating through esophagus, stomach, second portion of duodenum. The mucosa carefully examined. After procedure was done, the scope withdrawn and the procedure terminated. A colonoscope was then inserted from the rectum to the terminal ileum. Mucosa was carefully examined. Prep of the patient was suboptimal. After the procedure was done, the scope was withdrawn and procedure terminated. FINDINGS: Upon inspection of the esophagus, there was a distal esophageal ring/stricture located in the distal esophagus at the Z-line. Z-line located at 40 cm from incisors. The scope was able to pass through this ring/stricture with some difficulty. Upon entering the stomach, the stomach appeared normal without masses, ulcers, or lesions. Retroflexion was normal. Duodenal bulb, first and second portions normal. Biopsy of duodenum, antrum, body and distal esophagus. Upon inspection of the anus, no masses, hemorrhoids, ulcers, fissures that were seen. Throughout the entire examination, there was liquid brown stool that was seen throughout the entire colon. Intubation of the terminal ileum was normal. Biopsies taken ti and random colon. There was also a 2 mm ascending colon polyp, removed by cold biopsy forceps. Retroflexion was normal. IMPRESSIONS: 1. Distal esophageal ring/stricture in which the scope was able to pass was some difficulty, status post biopsy. 2. A 2 mm ascending colon polyp, removed by cold biopsy forceps. RECOMMENDATIONS: 1. Await pathology results. 2. Protonix 40 mg by mouth twice a day. 3. Carafate 1 g by mouth 4 times a day. 4. If tubular adenoma, then repeat colonoscopy in five years. 5. Okay to start clear liquid diet. Advance as tolerated. MTDD
[2016-10-18] MEDS: Sucralfate 1,000 mg Tablet PO SCH ×2 (12:31→17:13)
--- NOTE | 2016-10-18 15:12 | NUR ---
Social Work-readiness for discharge/multidisciplinary rounds: Data:EMR reviewed. Pt is on day 9 of hospitalization for CDiff per H&P. Pt is not medically stable anticipate 1-2 more days. Per RN notes, pt has been up independent in his room. Pt has his home CPAP and nebulizer in the room. No concerns noted around pt's capacity for self care from RN or MD. Pt to discharge home with friend when medically stable, friend to transport. No anticipated discharge needs. SW will continue to follow if needs arise. Assessment:Pt who is independent at baseline. Plan:Pt to discharge home with friend when medically stable via POV. No anticipated discharge needs. SW will continue to follow if needs arise. GUSTAVO Sheriff
[2016-10-18] MEDS ORDERED: RANI150C4 PO (16:00)
[2016-10-18] MEDS ORDERED: SUCR1ORA2 PO ×2 (16:03→16:04)
[2016-10-18] MEDS ORDERED: VANC250C3 PO (16:03)
--- NOTE | 2016-10-18 16:08 | PCM.DIMED ---
Discharge Instructions Date of Service Oct 18, 2016 Dates of Hospitalization Oct 09, 2016 at 08:24 Discharge Diagnosis Discharge Diagnosis C diff colitis, GERD, Esophageal thickening, Colon Polyp, Elevated Lipase, DAI Medication Instructions Additional med instructions Please take vancomycin as prescribed New medication: Carafate, Ranitidine increased dose Diet Discharge Diet: Heart Healthy Call your provider Call your provider for: Fever or Chills, Shortness of breath, Bleeding, Chest pain, Vomitting, Excessive diarrhea, Weakness (unilateral), Other Patient Instructions Follow-up plan F/U with your PCP in one week. BMP in 5 days prior to f/u with PCP F/U with Dr. Amanda in 2 weeks for biopsy results Please f/u with ID and Nephrology as previously planned Malina Cummings DO Oct 18, 2016 16:08
[2016-10-18] MEDS ORDERED: Pantoprazole 40 mg ER24 Tablet PO SCH (16:30)
--- NOTE | 2016-10-18 16:37 | NUR ---
Diet Advancement Diet advanced per MD orders. Patient tolerating solid food well, with no complaint of nausea or abdominal pain. Care is ongoing.
--- NOTE | 2016-10-18 17:09 | NUR ---
Social Work- discharge: Data:EMR reviewed. Pt is on day 9 of hospitalization for CDiff per H&P. Pt is medically stable for discharge today. Per RN notes, pt has been up independent in his room. Pt has his home CPAP and nebulizer in the room. No concerns noted around pt's capacity for self care from RN or MD. Pt to discharge home with friend today, friend to transport. No anticipated discharge needs. All updated and agreeable to plan. Assessment:Pt who is independent at baseline. Plan:Pt to discharge home with friend today via POV. No anticipated discharge needs. All updated and agreeable to plan. GUSTAVO Sheriff
[2016-10-18] MEDS ORDERED: Propofol 10,000 mCg/mL 20 mL Inj ONE (19:19)
--- NOTE | 2016-10-18 19:26 | NUR ---
Discharge Pt given packet with information about medications, instructions to clean home with bleach, follow up with PCP and get BMP in 5 days. Home meds from pharmacy given to pt, instructions given verbally and written. VSS. Pt agrees and prepared to discharge. Friend Randy here to black pickler patient. Ambulates off unit at 1924.
--- NOTE | 2016-10-18 21:14 | PCM.DC.MED ---
Discharge Summary Date of Service Oct 18, 2016 Dates of Hospitalization Date of Hospital Admission Oct 09, 2016 at 08:24 Date of Discharge: Oct 18, 2016 Providers: Admitting Physician: Praveen Pitts MD Primary Care Physician: Lucrecia Glover PA-C Attending Physician: Malina Dong DO Diagnosis at Time of Discharge Diagnosis at Time of Discharge C diff colitis, GERD, Esophageal thickening, Colon Polyp, Elevated Lipase, DAI Consultations Gastroenterology, infectious disease Procedures XRay, CTs & MRIs RecentMRCP IMPRESSION: Overall, unremarkable MRI appearance of the pancreas. Nonetheless recommend correlation with clinical findings and pancreatic enzymes. Recent CT abdomen IMPRESSION: 1. Acute change is not seen in the CT of the abdomen and pelvis without contrast. Cause of pain is not identified. 2. Previous removal of the left kidney. No evidence for malignancy is seen in the abdomen and pelvis. 3. Moderately enlarged prostate with diffusely thickened bladder wall. 4. Lipoma is in the lower thorax tissues bilaterally right greater than left ecent US IMPRESSION: 1. Diffusely increased hepatic echotexture. This finding is most likely secondary to hepatic fatty infiltration although other hepatocellular disease may have a similar appearance. Recommend clinical correlation. 2. Right kidney is normal in size but demonstrates echogenic cortex suggesting medical renal disease. Recommend clinical correlation. No hydronephrosis. 3. Left nephrectomy. 4. Pancreas not well-seen. PROCEDURE: NM HIDA SCAN WITH CCK INDICATIONS: RUQ PAIN IMPRESSION: Normal examination without evidence of cholecystitis. Dictated by: Maryellen Bowman MD, PhD on 10/16/2016 at 16:08 Approved by: Maryellen Bowman MD, PhD on 10/16/2016 at 16:09 Invasive Procedures Patient had a EGD, colonoscopy in 10/18/[address] Amanda Brief History Estevan Ortiz is a 66-year-old gentleman with a history of HTN, HepC, pancreatitis, GERD, esophageal stricture s/p dilation, sleep apnea, ITP, left- sided renal cell carcinoma s/p nephrectomy, and recent admission for C. difficile colitis, discharged on October 06 in good condition on Flagyl PO. He presented with the complaint of worsening diarrhea and abdominal cramping since being discharged on 10/09. He states that his symptoms never improved and that he is actually really upset that he was discharged at that time. He states that he did not feel like he was treated and his diarrhea ongoing. He reports liquid stool and decreased appetite along with nausea and vomiting prior to admission. He states that he generally has felt terrible for several months and reports multiple visits to the ED for similar symptoms. Chart review reveals multiple ED visits since February of this year for similar symptoms which was attributed to gastroenteritis and C.diff colitis. An abdominal ultrasound on 10/04 showed diffusely increased hepatic echo texture most likely secondary to hepatic fatty infiltration. After which an MRCP was done on 10/04 which was overall unremarkable. A CT abdomen and pelvis was done on 10/03 which showed no acute changes and no cause of pain was identified. HIDA SCAN on 10/16 was normal examination without evidence of cholecystitis. He denies fever, chills, diaphoresis, shortness of breath or chest pain. Hospital Course This is a 59 yo male with past medical history of Hepatitis C , pancreatitis, probably alcohol abuse, C-dif infection, recent admission to the hospital for C. difficile colitis, discharged on October 06 in good condition on Flagyl by mouth. Patient presented today with worsening diarrhea, fatigue, worsened renal function, elevated lipase. #C. difficile colitis, poa, improving - had flagyl 10-04 to 10-09 - had vanco 10-09 till today -- ID is consulted. We appreciate their recommendations. Per Dr. Knapp: "To satisfy the patient's persistent concerns about his C. difficile coming back or not being treated enough, I think I would complete two weeks of vancomycin 125 p.o. q.i.d. and then follow that with a tapering dose of 125 p.o. b.i.d. for two weeks, then 125 once a day for two weeks, and then finish out with 125 mg every other day for about two more weeks to complete a total of at least eight weeks of therapy. This is associated with a low relapse rate and should be very efficacious." # Nausea and poor appetite, POA -- CEA was consulted as above, patient has had an EGD and colonoscopy on 10/18/16. -- He was noted to have distal esophageal ring or stricture, a 2 mm polyp is removed. GI recommends Carafate and proton pump inhibitor -- Upon discussing his renal function GI decreased to have him on H2 erica instead of a proton pump inhibitor -- We appreciate GI recommendations #Acute on Chronic kidney injury stage 4, poa, resolved - 3.07 to 2.27-2.79 ->2.73-->2.63 -->2.33 - Patient does follow with mold release worker as outpatient (Dr. Tello), I have asked patient to discuss his latent TB with his mold release worker - base line about 2.5 -Patient was given IV fluid hydration -In the beginning losartan was held and was restarted the time of discharge #Anemia of chronic disease, poa, stable - Stable #Elevated lipase, chronic, poa, stable - Hepatitis C. - He has elevated lipase at baseline, unclear etiology - Patient does have a gallbladder, no other elevation in LFTs noted that he does have right upper quadrant/epigastric tenderness. - CT abdominopelvic had had showed no signs of cholelithiasis or choledocholithiasis in the past - Recent MRCP no concern for cholelithiasis and choledocholithiasis - Lipase trended down to 161 on the day of discharge - HIDA Scan is ordered: normal EF #Hyperparathyroidemia, poa, presumed stable -- Likely due to renal disease -- Vit D 25 OH levels are ordered during her last admission 21.3 (30-100 normal) -- He is on D3 1000 mg Daily supplementation #Hypertension, poa - The day of discharge patient's by mouth medications were held for his scope procedures, his home medications were given after his scope. Patient has experienced a slight increase in his blood pressures, after his medications were given, he has observed until his blood pressure improved to 144/95, he wanted to go home on 10/18 night. As his blood pressure was trending down he was discharged home on his by mouth home medications. We will request that the PCP rechecks his blood pressures at his follow-up #BPH, poa, presumed stable - stable - Continued home medications #GERD, poa, stable --Continue home medications -- Pantoprazole is held due to renal dysfunction -- Patient did asked to take Carafate by mouth and ranitidine upon discharge #Possible Sleep Apnea and COPD -Patient has a CPAP machine at home # Chronic latent tuberculosis (from records in 2013) -- Infectious disease recommend not treating at this time due to risks outweighing benefits -- I have asked patient to let his mold release worker know about this diagnosis DVT PROPHYLAXIS: heparin Code status: patient would like to be full code Labs, radiology tests reviewed. Plan of care, diagnostic procedures and available alternatives were discussed and reviewed with patient. All questions answered. Patient verbalized understanding, approved and agreed to plan of care. Exam Vital Signs (Last) Date Time Temp Pulse Resp B/P Pulse Ox O2 Delivery O2 Flow Rate FiO2 10/18/16 14:43 36.2 67 18 153/109 98 Room Air Exam Gen.: No acute distress HEENT: Normocephalic, atraumatic Heart: Regular rate and rhythm no S3-S4 sounds Lungs clear to auscultation no crackles wheezes Abdomen: Round nondistended, soft, nontender Extremities: Negative for edema Psych: Mood is pleasant affect is neutral Neurological: No focal deficits Test 10/09/16 05:15 10/09/16 07:15 10/13/16 06:20 10/14/16 05:46 Prothrombin Time 11.1sec (8.1-12.5) Prothromb Time International Ratio 1.04ratio Lactic Acid Level 0.8mmol/L (0.4-2.0) Magnesium Level 2.1mg/dL (1.6-2.6) Urine Color Yellow (YELLOW) Urine Appearance Hazy (CLEAR,HAZY) Urine pH 7.0 (5.0-8.0) Urine Specific [place] 1.015 (1.003-1.035) Urine Protein 100mg/dL (NEG,TRACE) Urine Glucose (UA) Negativemg/dL (NEGATIVE) Urine Ketones Negativemg/dL (NEGATIVE) Urine Occult Blood Trace (NEGATIVE) Urine Nitrite Negative (NEGATIVE) Urine Bilirubin Negative (NEGATIVE) Urine Urobilinogen Normalmg/dL (NORMAL) Urine Leukocyte Esterase Trace (NEGATIVE) Urine RBC 0-2/hpf (0-2) Urine WBC 6-10/hpf (0-5) Urine Epithelial Cells Occasional/hpf (NONE-MOD) Urine Crystals None seen (NONE SEEN) Urine Bacteria None/hpf (NONE-FEW) Urine Hyaline Casts None/lpf (NONE) Urine Granular Casts None seen (NONE SEEN) Urine Waxy Casts None seen (NONE SEEN) Urine Red Blood Cell Casts None seen (NONE SEEN) Urine White Blood Cell Casts None seen (NONE SEEN) Urine Mucus None seen (None Seen) Urine Trichomonas None seen (NONE SEEN) Urine Yeast None (NONE SEEN) Urinalysis Comment None Urine Culture Reflexed Indicated Procalcitonin 0.05ng/mL (0.00-0.08) White Blood Count 6.0th/mm3 (3.8-10.1) Red Blood Count 4.34mil/mm3 (4.40-5.80) Hemoglobin 12.3g/dL (13.8-17.2) Hematocrit 36.6% (41.0-50.0) Mean Corpuscular Volume 84.3fL (81-100) Mean Corpuscular Hemoglobin 28.3pg (27.0-35.0) Mean Corpuscular Hemoglobin Concent 33.6% (32.0-37.0) Red Cell Distribution Width 13.5% (12.3-15.4) Platelet Count 107bil/L (150-400) Neutrophils (%) (Auto) 54.2% (40-74) Lymphocytes (%) (Auto) 26.5% (14-46) Monocytes (%) (Auto) 15.4% (4-12) Eosinophils (%) (Auto) 3.2% (0-5) Basophils (%) (Auto) 0.5% (0-3) C-Reactive Protein < 0.0mg/dL (0.0-0.5) Test 10/18/16 05:25 Sodium Level 142mEq/L (134-144) Potassium Level 3.9mEq/L (3.5-5.2) Chloride Level 106mEq/L (97-108) Carbon Dioxide Level 21mmol/L (18-29) Blood Urea Nitrogen 15mg/dL (8-27) Creatinine 2.23mg/dL (0.76-1.27) Estimat Glomerular Filtration Rate 31mL/min (>59) Glucose Level 78mg/dL (60-99) Calcium Level 8.5mg/dL (8.5-10.1) Total Bilirubin 0.4mg/dL (0.0-1.2) Aspartate Amino Transf (AST/SGOT) 28U/L (0-50) Alanine Aminotransferase (ALT/SGPT) 37U/L (0-44) Alkaline Phosphatase 86U/L (25-160) Total Protein 6.5g/dL (6.4-8.4) Albumin 3.6g/dL (3.4-5.0) Lipase 161U/L (13-60) Discharge Medications Discharge Medications Carvedilol (Carvedilol) 25 Mg Tablet 25 MG PO BIDWM Prescribed by: JASPAL CLAY MD Finasteride (Finasteride) 5 Mg Tablet 5 MG PO DAILY (Reported) Fluticasone Propionate (Flonase Allergy Relief) 50 Mcg/Actuation [place].susp 2 SPRAYS NS DAILY (Reported) Levothyroxine (Levothyroxine) 50 Mcg Tablet 50 MCG PO DAILY (Reported) Losartan Potassium (Losartan Potassium) 25 Mg Tablet 25 MG PO DAILY (Reported) Nifedipine ER (Adalat CC) 60 Mg Tablet 60 MG PO DAILY (Reported) Ranitidine (Ranitidine) 150 Mg Capsule 150 MG PO BID Prescribed by: MALINA DONG DO Sucralfate Susp (Carafate Susp) 1 Gm/10 Ml Oral.susp 1 GM PO QID Prescribed by: MALINA DONG DO Terazosin (Terazosin) 2 Mg Capsule 2 NG PO MORNING (Reported) Terazosin (Terazosin) 2 Mg Capsule 4 MG PO HS (Reported) Vancomycin (Vancomycin) 250 Mg Capsule 250 MG PO Q6 Prescribed by: MALINA DONG DO As needed Albuterol Sulfate (Ventolin HFA Inhaler) 200 Puff/18 Gm Inhaler 2 PUFF INH Q4 PRN PRN For Shortness of Breath (Reported) Ondansetron ODT (Zofran ODT) 4 Mg Tablet 4 MG PO Q4H PRN PRN For Nausea Prescribed by: SHANA CHI Additional med instructions Please take vancomycin as prescribed New medication: Carafate, Ranitidine increased dose Followup Plan Follow-up plan F/U with your PCP in one week. BMP in 5 days prior to f/u with PCP F/U with Dr. Amanda in 2 weeks for biopsy results Please f/u with ID and Nephrology as previously planned Discharge Diet: Heart Healthy Time spent Greater than 30 minutes was spent in preparation of discharge with greater than 50% of that time dedicated to patient counseling and coordination of care. Malina Dong DO Oct 18, 2016 16:13
[2016-10-18] MEDS ORDERED: CHOL10008 PO (21:25)
[2016-10-19] MEDS ORDERED: VANC250C3 PO (15:01)
--- NOTE | 2016-10-22 16:14 | PATH ---
SURGICAL PATHOLOGY Attending Physician:Ector Amanda MD CASE STATUS: Signed Out PATIENT NAME: ISABEL MAGANA PID: [id number] : 1950 DATE COLLECTED:10/18/2016 00:00 SPECIMEN: 1: Duodenum, Biopsy 2: Stomach, Antrum, Biopsy 3: Gastric, Biopsy 4: Esophagus, Biopsy 5: Ileum, Biopsy 6: Colon, Biopsy 7: Colon, Polyp CLINICAL HISTORY: RULE OUT H.PYLORI 1). DUODENUM BIOPSY 2). ANTRUM BIOPSY 3). GASTRIC BODY BIOPSY 4). DISTAL ESOPHAGUS BIOPSY 5). TERMINAL ILEUM BIOPSY 6). RANDOM COLON BIOPSY 7). ASCENDING COLON POLYP FINAL DIAGNOSIS: 1. Duodenum, Biopsy: Duodenal mucosa with no diagnostic abnormality. Negative for active inflammation, features of sprue, dysplasia and malignancy. 2. Stomach, Antrum, Biopsy: Antral mucosa with no diagnostic abnormality. Negative for Helicobacter organisms. Negative for intestinal metaplasia. Negative for dysplasia and malignancy. 3. Stomach, Body, Biopsy: Body-type mucosa with no diagnostic abnormality. Negative for Helicobacter organisms. Negative for intestinal metaplasia. Negative for dysplasia and malignancy. 4. Distal Esophagus, Biopsy: Squamocolumnar junctional mucosa with reflux-related changes and mild active inflammation. Negative for intestinal metaplasia. No obvious fungal organisms identified on H&E stain. Negative for dysplasia and malignancy. 5. Terminal Ileum, Biopsy: Small bowel mucosa with no diagnostic abnormality. Negative for active inflammation, dysplasia and malignancy. 6. Random Colon, Biopsies: Colonic mucosa with no diagnostic abnormality. Negative for active, chronic and microscopic colitis. Negative for dysplasia and malignancy. 7. Ascending Colon, Polyp, Biopsy: Tubular adenoma. ICD10: D12.2 K21.0 GROSS DESCRIPTION: The specimen is received in seven formalin filled containers labeled with the patient's name. 1). The specimen is labeled "duodenum" and consists of 2 portions of tissue which aggregate to 0.2 x 0.2 x 0.2 CM. The specimen is entirely submitted in cassette 1A. 2). The specimen is labeled "antrum" and consists of 2 portions of tissue which aggregate to 0.3 x 0.3 x 0.2 CM. The specimen is entirely submitted in cassettes 2A. 3). The specimen is labeled "gastric body" and consists of 3 portions of tissue which aggregate to 0.4 x 0.3 x 0.2 CM. The specimen is entirely submitted in cassette 3A. 4). The specimen is labeled distal esophagus" and consists of 2 portions of tissue which aggregate to 0.3 x 0.3 x 0.2 CM. The specimen is entirely submitted in cassette 4A. 5). The specimen is labeled "terminal ileum" and consists of a 0.3 x 0.2 x 0.2 CM portion of tissue which is entirely submitted in cassette 5A. 6). The specimen is labeled "random colon" and consists of 5 portions of tissue which aggregate to 0.4 x 0.4 x 0.2 CM. The specimen is entirely submitted in cassette 6A. 7). The specimen is labeled "ascending colon polyp" and consists of a 0.4 x 0.3 x 0.2 CM portion of tissue which is entirely submitted in cassette 7A. 10/21/2016[place] ICD-9 CODES: CPT CODES: 1: 30400 2: 41810 3: 51618 4: 49053 5: 87280 6: 05997 7: 76453 Electronically Signed Out Lisbeth Harman MD [facility] [address], [place] [address] Technical component performed at [facility], [facility] [address], [place], [address]
== END 2016-10-18 19:20 | disposition home or self-care (01) | DRG 372 ==
LOC: SED 04:54 → OSC 08:24
PROVIDERS: ADMIT Internal Medicine; ATTEND Family Medicine
PROC: 0DB98ZX Excision of Duodenum, Via Natural or Artificial Opening Endoscopic, Diagnostic (ICD-10-PCS; 2016-10-18)
PROC: 0DB68ZX Excision of Stomach, Via Natural or Artificial Opening Endoscopic, Diagnostic (ICD-10-PCS; 2016-10-18)
PROC: 0DBB8ZX Excision of Ileum, Via Natural or Artificial Opening Endoscopic, Diagnostic (ICD-10-PCS; 2016-10-18)
PROC: 0DBE8ZX Excision of Large Intestine, Via Natural or Artificial Opening Endoscopic, Diagnostic (ICD-10-PCS; 2016-10-18)
PROC: 0DB38ZX Excision of Lower Esophagus, Via Natural or Artificial Opening Endoscopic, Diagnostic (ICD-10-PCS; principal; 2016-10-18 10:00)
PROC: 0DBK8ZX Excision of Ascending Colon, Via Natural or Artificial Opening Endoscopic, Diagnostic (ICD-10-PCS; 2016-10-18 10:00)
DX: A04.7 Enterocolitis due to Clostridium difficile (principal); N18.4 Chronic kidney disease, stage 4 (severe); N17.9 Acute kidney failure, unspecified; D69.3 Immune thrombocytopenic purpura; I12.9 Hypertensive chronic kidney disease with stage 1 through stage 4 chronic kidney disease, or unspecified chronic kidney disease; B18.2 Chronic viral hepatitis C; K21.9 Gastro-esophageal reflux disease without esophagitis; N40.0 Benign prostatic hyperplasia without lower urinary tract symptoms; G47.33 Obstructive sleep apnea (adult) (pediatric); G89.29 Other chronic pain; E03.9 Hypothyroidism, unspecified; D63.8 Anemia in other chronic diseases classified elsewhere; D12.2 Benign neoplasm of ascending colon; Z79.51 Long term (current) use of inhaled steroids; Z88.0 Allergy status to penicillin